=== PATIENT | female | born 1965 | race Caucasian/White ===

== ENCOUNTER → 2020-12-27 09:40 | Outpatient (CLI) | payer OTHER, SELFPAY ==
--- NOTE | ~2020-12-27 | XR_ITS ---
EXAMINATION: XR knee RT 3V DATE: 12/27/2020 10:22 INDICATION: Right knee injury and pain. TECHNIQUE: 3 views of right knee standing were obtained. COMPARISON: None. FINDINGS: Bone alignment is normal. No fracture. There is mild tricompartmental osteoarthritis charac terized by tiny marginal osteophytes. There is a small knee joint effusion. IMPRESSION: 1. Mild right knee osteoarthritis. 2. Small right knee joint effusion. Reviewed, dictated and finalized at location B.
== END ==
PROVIDERS: PCP Internal Medicine; Visit Provider Internal Medicine
DX: M17.11 Unilateral primary osteoarthritis, right knee (principal); M25.461 Effusion, right knee
CPT/HCPCS: 73562

== ENCOUNTER → 2020-12-27 18:14 | Outpatient (CLI) | payer OTHER, SELFPAY ==
--- NOTE | ~2020-12-27 | MM_ITS ---
EXAMINATION: MM screening rory BI w shanthi HISTORY: Screening mammogram TECHNIQUE: Craniocaudal and mediolateral oblique 3-D tomosynthesis images were obtained and synthetic 2-D images were generated. CAD analysis was submitted and interpreted. COMPARISON: 06/23/2018 bilateral digital screening mammogram BREAST PARENCHYMAL COMPOSITION: There are scattered areas of fibroglandular density. FINDINGS: There is no evidence of suspicious mass, calcification, or architectural distortion to sugg est malignancy in either breast. There has been no suspicious interval change. IMPRESSION: 1. No mammographic evidence of malignancy. 2. Recommend routine screening mammography in one year. BI-RADS Category 1: Negative Reviewed, dictated and finalized at location A.
== END ==
PROVIDERS: PCP Internal Medicine; Visit Provider Obstetrics & Gynecology Gynecology
DX: Z12.31 Encounter for screening mammogram for malignant neoplasm of breast (principal)
CPT/HCPCS: 77063; 77067

== ENCOUNTER 2022-05-15 07:40 | Outpatient (CLI) | payer OTHER, SELFPAY ==
--- NOTE | 2022-06-04 12:09 | WPDSLEEPSTUD ---
Sleep Study Date of Study: 05/15/22 Ordering Provider: Jesse Partida APRN Interpreting Physician: Isabella Moncada MD Sleep Study Type: Split Polysomnogram Height: 1.68 m Weight: 99.79 kg Body Mass Index: 35.5 Neck Circumference (inches): 17.5 Helen: 19 Reason for Sleep Study Obstructive sleep apnea, hypersomnolence Sleep History Kavitha Roper is a 57-year-old female who started using CPAP 20 years ago. A new device is needed. The patient snores loudly and is tired during the day. There is a family history with 2 siblings also having sleep apnea. There frequent awakenings due to shortness of breath. Frequently awakening at night with heartburn, belching or coughing. There is constant difficulty sleeping when she has a cold. She occasionally wakes up gasping for breath at night. She frequently has breathing problems at night observed by others. She occasionally sweats excessively at night. She frequently has breathing problems at night observed by others. She occasionally sweats excessively at night, occasionally notices her heart pounding or beating irregularly at night, occasionally falls asleep during the day and if he occasionally falls asleep involuntarily. She rarely falls asleep while driving. She does not have loss of muscle tone with strong emotion. She frequently has daytime difficulties due to excessive sleepiness. She occasionally feels paralyzed on waking or falling asleep. She frequently has vivid dreamlike scenes upon awakening or falling asleep. She does not feel afraid to go to sleep. She occasionally has nightmares. She frequently remembers her dreams. She occasionally has racing thoughts. She rarely feels sad or depressed. She occasionally has anxiety. She occasionally has muscular tension, occasionally notices parts of her body jerking and she occasionally kicks at night. She frequently has crawling aching feelings in her legs. She frequently has leg pain at night. She does not have morning jaw pain. Rarely grinds her teeth during sleep. She occasionally is bothered by pain during the day and occasionally awakened by pain at night. She frequently wakes up feeling stiff in the morning with sore achy muscles and pain in the neck and spine. She has fatigue and memory problems at times she has insomnia. She takes antacids regularly. Normal bedtime is 10:30 p.m. falling asleep within 10 minutes, typically waking 3-5 times at night to go to the bathroom, we position. It takes her 5 minutes to return to sleep. She wakes between 630 and 7:00 a.m.. She estimates getting 5-1/2 hours of sleep at night. On the weekends, bedtime is later, midnight and a wake-up time is between 7 and 7:30 a.m.. She occasionally takes naps in the day. A short nap may be refreshing. She is usually drowsy for an hour or longer. Habits: Never smoked tobacco. Caffeine 1 ice tea a day. Alcohol twice a month. No recreational drugs. [facility] Past Medical History Medical History (Updated 06/06/22 @ 17:47 by Isabella Moncada MD) Dyslipidemia Essential hypertension GERD (gastroesophageal reflux disease) AMANDO (obstructive sleep apnea) Family History Family History Sibling Diabetes mellitus Hypertension Mother Hypertension Family history of elevated blood lipids Social History Social History Smoking status: Never smoker Alcohol intake: current Medications Home Medications Medication Instructions Recorded Confirmed Type esomeprazole magnesium 20 mg 20 mg PO DAILY 02/07/22 05/15/22 History capsule,delayed release lisinopril 40 mg tablet 40 mg PO DAILY #90 tabs 02/07/22 05/15/22 Rx alprazolam 0.25 mg tablet (Xanax) 0.25 mg PO DAILY PRN anxiety #30 05/15/22 05/15/22 Rx tabs Sleep Procedure This test was performed using the [employer] multiple channel system including EOG, EEG, submen
[2022-06-06 20:27] VITALS: BMI 35.5
== END 2022-05-16 05:20 | disposition home or self-care (01) ==
PROVIDERS: PCP Internal Medicine; Visit Provider Nurse Practitioner Family
DX: G47.33 Obstructive sleep apnea (adult) (pediatric) (principal); G47.31 Primary central sleep apnea; G47.10 Hypersomnia, unspecified; Z68.35 Body mass index [BMI] 35.0-35.9, adult
CPT/HCPCS: 95811

== ENCOUNTER 2023-02-19 16:21 | Outpatient (CLI) | payer OTHER, SELFPAY ==
--- NOTE | ~2023-02-19 | XR_ITS ---
Lumbosacral Spine: AP and lateral views Clinical History: Pain Findings: The normal lordotic curve is maintained. There is posterior fusion from L4 through S1, bila teral rods and transpedicular screws present. There are interbody fusion devices at the L4-L5 and L5- S1 disc spaces. Remaining disc spaces are preserved. The sacroiliac joints are normally outlined. Impression: Posterior fusion and interbody fusion from L4 through S1, as detailed above. Reviewed, dictated and finalized at location M. Impression: Posterior fusion and interbody fusion from L4 through S1, as detailed above.
--- NOTE | ~2023-02-19 | XR_ITS ---
EXAM: XR hip RT 2V w AP pelvis DATE: 02/19/2023 16:49 HISTORY: M25.559 - Pain in unspecified hip . COMPARISON: None available. FINDINGS: Partially visualized lumbar fusion hardware. Normal mineralization. No fracture or dislocat ion. No lytic or blastic lesion. Mild degenerative change in the lumbar spine, pubic symphysis, and b ilateral hips. Scattered pelvic and hip enthesopathy. No erosion or periosteal change. Soft tissues w ithin normal limits. IMPRESSION: Mild bilateral hip osteoarthritis, slightly worse in the right hip. Reviewed, dictated and finalized at location K.
--- NOTE | ~2023-02-19 | XR_ITS ---
EXAMINATION: XR_CERV2-3V_CR DATE: 02/19/2023 16:54 INDICATION: Back pain. TECHNIQUE: 3 views of cervical spine were obtained. COMPARISON: None. FINDINGS: Bone alignment is normal. Vertebral body heights are normal. There is mildly decreased disc height at C4-C5. There is multilevel uncovertebral joint osteoarthritis, severe on the left at C5-C6 . There is multilevel facet joint osteoarthritis, severe at C7-T1. No central canal stenosis or preve rtebral soft tissue swelling. IMPRESSION: 1. Mild cervical spondylosis. Reviewed, dictated and finalized at location A.
== END 2023-02-19 16:22 | disposition home or self-care (01) ==
LOC: ANHIMG 16:25
PROVIDERS: PCP Family Medicine; Visit Provider Family Medicine
DX: M16.0 Bilateral primary osteoarthritis of hip (principal); M47.812 Spondylosis without myelopathy or radiculopathy, cervical region; M54.50 Low back pain, unspecified; I10 Essential (primary) hypertension; Z98.1 Arthrodesis status
CPT/HCPCS: 72040; 72100; 73502

== ENCOUNTER 2023-04-18 15:00 | Outpatient (RCR) | payer OTHER, SELFPAY ==
--- NOTE | 2023-02-28 14:58 | OPREHPOC ---
Outpatient Therapy Plan of Care This is a Multidisciplinary Plan of Care that may contain components documented by all disciplines (PT, OT, and ST.) PT Problem 1 PT Problem #1 Knowledge Deficit PT Goal 1 Goal Independent with HEP Target Visit 8 PT Problem 2 PT Problem #2 Impaired Strength PT Goal 1 Goal R hip flexors, knee extensors and flexors 5/5 strength. Target Visit 8 PT Problem 3 PT Problem #3 Pain PT Goal 1 Goal decreased R hip/thigh pain to no more than 2/10 Target Visit 8 PT Goal 2 Goal able to sleeep through the night Target Visit 8
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
== END 2023-05-10 16:10 | disposition home or self-care (01) ==
LOC: ANHPT 15:00
PROVIDERS: PCP Family Medicine; Visit Provider Family Medicine
DX: S76.20 Unspecified injury of adductor muscle, fascia and tendon of thigh (principal)
CPT/HCPCS: 97110; 97140; 97161; 99199

== ENCOUNTER → 2023-05-15 10:38 | Outpatient (CLI) | payer OTHER, SELFPAY ==
--- NOTE | ~2023-05-15 | MM_ITS ---
EXAMINATION: MM screening rory BI w shanthi HISTORY: Screening mammogram TECHNIQUE: Craniocaudal and mediolateral oblique 3-D tomosynthesis images were obtained and synthetic 2-D images were generated. CAD analysis was submitted and interpreted. COMPARISON: 12/27/2020, 06/23/2018 bilateral screening mammogram examinations BREAST PARENCHYMAL COMPOSITION: There are scattered areas of fibroglandular density. FINDINGS: There is no evidence of suspicious mass, calcification, or architectural distortion to sugg est malignancy in either breast. There has been no suspicious interval change. IMPRESSION: 1. No mammographic evidence of malignancy. 2. Recommend routine screening mammography in one year. BI-RADS Category 1: Negative Reviewed, dictated and finalized at location A.
== END ==
PROVIDERS: PCP Family Medicine; Visit Provider Obstetrics & Gynecology Gynecology
DX: Z12.31 Encounter for screening mammogram for malignant neoplasm of breast (principal)
CPT/HCPCS: 77063; 77067

== ENCOUNTER 2023-05-31 11:01 | Outpatient (CLI) | payer OTHER, SELFPAY ==
--- NOTE | ~2023-05-31 | MR_ITS ---
EXAMINATION: MR brain/brain stem wo con DATE: 05/31/2023 11:34 INDICATION: Posttraumatic headache TECHNIQUE: Magnetic resonance imaging (MRI) of the brain and brainstem was performed without intraven ous contrast. Sequences included sagittal and axial T1-weighted SE, axial diffusion-weighted FS SE, a xial 3D SWAN, axial T2-weighted FLAIR, and axial T2-weighted FSE. Apparent diffusion coefficient (ADC ) maps were created. COMPARISON: None. FINDINGS: There are no areas of restricted diffusion to suggest acute infarction. No intracranial hemorrhage or abnormal intracranial mass lesion. There are no intraparenchymal signal abnormalities seen on the ot her pulse sequences. The ventricles are symmetric and normal in size. There are no abnormal extra-axi al fluid collections. Flow voids are seen in the cerebral arteries on the T2-weighted sequences consi stent with their expected patency. Visualized orbits and soft tissues are unremarkable. IMPRESSION: 1. Normal brain MR. Reviewed, dictated and finalized at location A. IMPRESSION: 1. Normal brain MR.
== END 2023-05-31 11:02 | disposition home or self-care (01) ==
LOC: ANHIMG 11:03
PROVIDERS: PCP Family Medicine; Visit Provider Family Medicine
DX: G44.309 Post-traumatic headache, unspecified, not intractable (principal); S09.90XS Unspecified injury of head, sequela; R47.89 Other speech disturbances
CPT/HCPCS: 70551

== ENCOUNTER 2023-07-10 08:15 | Outpatient (RCR) | payer OTHER, SELFPAY ==
[2023-06-12 08:20] VITALS: BMI 35.8
[2023-06-12 08:23] VITALS: BMI 35.8
[2023-07-10 08:29] VITALS: BMI 35.5
[2023-07-10 08:30] VITALS: BMI 35.5
== END 2023-09-09 08:41 | disposition home or self-care (01) ==
LOC: ANHDMC 08:15
PROVIDERS: PCP Family Medicine; Visit Provider Family Medicine
DX: I10 Essential (primary) hypertension (principal); E66.9 Obesity, unspecified; G47.33 Obstructive sleep apnea (adult) (pediatric); K21.9 Gastro-esophageal reflux disease without esophagitis; Z71.3 Dietary counseling and surveillance
CPT/HCPCS: 97802; 97803

== ENCOUNTER 2023-10-10 08:15 | Outpatient (RCR) | payer OTHER, SELFPAY ==
[2023-09-19 08:22] VITALS: BMI 35.9
[2023-10-10 08:20] VITALS: BMI 35.9
== END 2023-12-18 23:59 | disposition home or self-care (01) ==
LOC: ANHDMC 08:15
PROVIDERS: PCP Family Medicine; Visit Provider Family Medicine
DX: E66.9 Obesity, unspecified (principal); I10 Essential (primary) hypertension; K21.9 Gastro-esophageal reflux disease without esophagitis; G47.33 Obstructive sleep apnea (adult) (pediatric); Z68.36 Body mass index [BMI] 36.0-36.9, adult; Z71.3 Dietary counseling and surveillance
CPT/HCPCS: 97803

== ENCOUNTER 2024-03-24 14:20 | Outpatient (CLI) | payer OTHER, SELFPAY ==
--- NOTE | ~2024-03-24 | XR_ITS ---
XR chest 2V Ordering provider: Devan Bell MD History: 58 years Female with . E66.9 - Obesity, unspecified . Comparison: None. FINDINGS: MEDIASTINUM: The cardiac silhouette is not enlarged. LUNGS: No infiltrates, effusions or pneumothorax. OTHER: No free air under the diaphragm. Degenerative changes of the spine. IMPRESSION: No acute cardiopulmonary pathology. Reviewed, dictated and finalized at location A.
--- NOTE | 2024-03-24 14:39 | ECG_ITS ---
Test Date: 2024-03-24 14:49:18 Measurements Intervals [place] Rate: 62 P: 30 MN: 177 QRS: 64 QRSD: 98 T: 35 QT: 409 QTc: 416 Interpretive Statements SINUS RHYTHM No previous ECG available for comparison Electronically Signed On 03-24-2024 15:21:47 CDT by Jessica Holguin M.D.
== END 2024-03-24 14:21 | disposition home or self-care (01) ==
PROVIDERS: PCP Family Medicine; Visit Provider Family Medicine
DX: E66.9 Obesity, unspecified (principal); I10 Essential (primary) hypertension; E78.5 Hyperlipidemia, unspecified; G47.33 Obstructive sleep apnea (adult) (pediatric); K21.9 Gastro-esophageal reflux disease without esophagitis; E55.9 Vitamin D deficiency, unspecified
CPT/HCPCS: 71046; 93005

== ENCOUNTER 2024-05-04 15:35 | Outpatient (CLI) | payer OTHER, SELFPAY ==
--- NOTE | ~2024-05-04 | US_ITS ---
EXAMINATION: US pelvic limited DATE: 05/04/2024 15:54 INDICATION: Right inguinal pain TECHNIQUE: Multiple grayscale and Doppler ultrasound images of the abdomen were obtained. COMPARISON: None FINDINGS/IMPRESSION: No right inguinal hernia, pathologically enlarged lymph nodes or other abnormal masses or fluid colle ctions identified at the right inguinal region of concern. Reviewed, dictated and finalized at location A.
== END 2024-05-04 15:36 | disposition home or self-care (01) ==
PROVIDERS: PCP Family Medicine; Visit Provider Family Medicine
DX: R10.30 Lower abdominal pain, unspecified (principal); M25.559 Pain in unspecified hip
CPT/HCPCS: 76857

== ENCOUNTER 2024-05-19 13:39 | Outpatient (CLI) | payer OTHER, SELFPAY ==
--- NOTE | ~2024-05-19 | MM_ITS ---
EXAMINATION: MM screening rory BI w shanthi HISTORY: Screening TECHNIQUE: Craniocaudal and mediolateral oblique 3-D tomosynthesis images were obtained and synthetic 2-D images were generated. CAD analysis was submitted and interpreted. COMPARISON: Comparison to multiple prior studies sequentially, with oldest reviewed study dated 06/05. BREAST PARENCHYMAL COMPOSITION: Not dense: There are scattered areas of fibroglandular density. FINDINGS: There is no evidence of suspicious mass, calcification, or architectural distortion to sugg est malignancy in either breast. There has been no suspicious interval change. IMPRESSION: 1. No mammographic evidence of malignancy. 2. Recommend routine screening mammography in one year. BI-RADS Category 1: Negative Reviewed, dictated and finalized at location B.
== END 2024-05-19 13:40 | disposition home or self-care (01) ==
LOC: MICIMG 13:39
PROVIDERS: PCP Family Medicine; Visit Provider Nurse Practitioner
DX: Z12.31 Encounter for screening mammogram for malignant neoplasm of breast (principal)
CPT/HCPCS: 77063; 77067

== ENCOUNTER 2024-06-06 13:44 | Emergency (ER) | payer OTHER, SELFPAY ==
[2024-06-06] VITALS (15 sets, daily range): BP systolic 146–154; BP diastolic 78–94; PULSE 92–100; RESP 16–21; TEMP 36.5; O2SAT 94–97
--- NOTE | ~2024-06-06 | XR_ITS ---
XR chest 2V DATE: 06/06/2024 14:14 INDICATION: Chest pain, dyspnea on exertion. Neck surgery on 06/04/2024 TECHNIQUE: AP and lateral views COMPARISON: 03/24/2024 PA and lateral chest FINDINGS: Status post intervertebral body fusion at C5-6 and C6-7 since 03/24/2024. Normal heart size. No hilar or mediastinal enlargement. Minimal linear atelectasis at the left lung base; otherwise no pulmonary infiltrate or consolidation, pleural effusion or pulmonary vascular congestion or pneumothorax. Status post cholecystectomy. IMPRESSION: Minimal linear atelectasis at left lung base Postoperative change of the lower cervical spine since 03/24/2024 Reviewed, dictated and finalized at location A.
--- NOTE | 2024-06-06 13:45 | ECG_ITS ---
Test Date: 2024-06-06 13:50:12 Measurements Intervals [place] Rate: 101 P: 59 ID: [id number] QRS: 48 QRSD: 97 T: 39 QT: 326 QTc: 424 Interpretive Statements SINUS TACHYCARDIA MINIMAL Q WAVES- ANTEROLAT/INF LEADS BASELINE WANDER- I, II BORDERLINE ECG Compared to ECG 03/24/2024 14:49:18 HEART RATE HAS INCREASED Electronically Signed On 06-06-2024 17:11:10 CDT by Maxi Sapp D.O.
[2024-06-06 14:08] LABS: Basophils Percent Auto 0.3 % (0.2-1.2); Eosinophils Percent Auto 0.4 % (0-4.4); Hematocrit 34.7 % (37.0-47.0); Hemoglobin 11.8 g/dL (12.0-15.0); Immature Granulocyte Absolute 0.03 K/mm3 (0.00-0.031); Immature Granulocyte Percent A 0.3 % (0-0.5); Lymphocytes Absolute Auto 2.85 K/mm3 (0.9-3.2); Lymphocytes Percent Auto 31.1 % (18.3-44.2); Mean Corpuscular Hemoglobin 29.6 pg (26-34); Mean Corpuscular Volume 87.2 fl (80-100); Monocytes Absolute Auto 0.6 K/mm3 (0.1-0.6); Monocytes Percent Auto 6.3 % (2.6-8.5); Neutrophils Absolute Auto 5.6 K/mm3 (1.3-6.7); Neutrophils Percent Auto 61.6 % (45.5-73.1); Platelet Count Result 219 k/mm3 (150-375); Red Blood Count 3.98 M/mm3 (4.2-5.4); Red Cell Distribution Width 12.2 % (11.5-14.5); White Blood Count 9.2 K/mm3 (4.5-10.0)
--- NOTE | 2024-06-06 14:15 | ED_ITS ---
HPI - Chest Pain General Chief Complaint: Chest Pain Stated Complaint: chest pain Time Seen by Provider: 06/06/24 14:12 Source: patient Mode of arrival: ambulatory Limitations: no limitations History of Present Illness HPI narrative: PATIENT IS STATUS POST NECK SURGERY 3 DAYS AGO AT [place]. LAST NIGHT DEVELOPED SQUEEZING FEELING AT THE UPPER CHEST BILATERALLY, COUGHED UP BLACK SPUTUM ONCE. NOTICED THAT HER HEART RATE IS HIGH LITTLE BIT ABOVE 100, SHE DENIES ANY FEVER, CHILLS, NAUSEA, VOMITING,, DIFFICULTY SWALLOWING OR TALKING, REPORTS SHORTNESS OF BREATH ON EXERTION. HISTORY OF HYPERTENSION, DOES NOT SMOKE OR DRINK OR USE DRUGS. Related Data Home Medications Medication Instructions Recorded Confirmed esomeprazole magnesium 20 mg 20 mg PO DAILY 02/07/22 02/18/24 capsule,delayed release multivit,Ca,ain-nklx-GS-guarana-caff tablet PO 10/02/23 02/18/24 18 mg iron-400 mcg-180 mg tablet (One-A-Day Women's Active) omega 9-jwh-rsx-fish oil 60 mg-90 1 cap PO DAILY 10/02/23 02/18/24 mg-500 mg capsule (Fish Oil) Allergies Allergy/AdvReac Type Severity Reaction Status Date / Time No Known Allergies Allergy Verified 06/06/24 14:02 Review of Systems Review of Systems: All systems reviewed & are unremarkable except as noted in HPI and below PMFSH Past Medical History Medical History Dyslipidemia Essential hypertension GERD (gastroesophageal reflux disease) AMANDO (obstructive sleep apnea) Family History Family History Sibling Diabetes mellitus Hypertension Mother Hypertension Family history of elevated blood lipids Sibling Kidney problem Social History Social History Smoking status: Never smoker Alcohol intake: current Substance use: never Substance use type: does not use Living arrangements: with family Occupation/Education: occupation Gender identity (if verbalized by the patient): Female Spiritual care concerns: No Exam Narrative: GENERAL APPEARANCE: WELL-DEVELOPED, WELL-NOURISHED SKIN: NORMAL COLOR HEAD: NORMOCEPHALIC, NONTRAUMATIC EYES: CLEAR CONJUNCTIVA ENT: OROPHARYNX NORMAL, EARS NORMAL, NOSE NORMAL NECK: SUPPLE, NONTENDER CHEST AND RESPIRATORY: AIRWAY PATENT, NO RESPIRATORY DISTRESS, NO ACCESSORY MUSCLE USE HEART: REGULAR RATE/RHYTHM ABDOMEN: SOFT, NONTENDER, NO ORGANOMEGALY, QUIET BOWEL SOUNDS VASCULAR: NORMAL PERIPHERAL PULSES, NORMAL CAPILLARY REFILL. MUSCULOSKELETAL: NORMAL RANGE OF MOTION, NONTENDER BACK NEUROLOGIC: ALERT AND ORIENTED ?3, REMEDIATION PROJECT ENGINEER IS NORMAL TESTED, NO GROSS MOTOR DEFICIT Course Consultations Consultation #1: DR LORD, AGREED WITH OUR WORKUP, RECOMMEND DECADRON 10 MG IV AND PPI FOR POSSIBLE ESOPHAGEAL RELATED SYMPTOMS TO GO TO HIS OFFICE ON SATURDAY AND CALL HIS OFFICE FOR ANY NEW SYMPTOMS Date: 06/06/24 Time: 15:37 Vital Signs Vital signs: Vital Signs Temperature 36.5 C 06/06/24 13:51 Pulse Rate 99 06/06/24 13:51 Respiratory Rate 20 06/06/24 13:51 Blood Pressure 154/94 H 06/06/24 13:51 Pulse Oximetry 94 06/06/24 13:51 Oxygen Delivery Room Air 06/06/24 13:51 Temperature 36.5 C 06/06/24 13:51 Pulse Rate 97 06/06/24 15:19 Respiratory Rate 16 06/06/24 15:19 Blood Pressure 154/94 H 06/06/24 13:51 Pulse Oximetry 96 06/06/24 15:19 Oxygen Delivery Room Air 06/06/24 14:00 MDM - Chest Pain MDM Narrative Medical decision making narrative: PATIENT IS STATUS POST NECK SURGERY 3 DAYS AGO, YESTERDAY STARTED HAVING BILATERAL UPPER CHEST PAIN VITAL SIGNS ARE STABLE PHYSICAL EXAMINATION SHOWED A PATIENT LYING DOWN IN BED, LOOKS COMFORTABLE WITH SOFT C-COLLAR ON, HEART RATE IN THE 105 DIFFERENTIAL DIAGNOSIS MUSCULAR STRAIN SPRAIN, ESOPHAGITIS, EDEMA SECONDARY TO SURGERY BLOOD WORKUP TODAY SHOWED WBC OF 9.2, HEMOGLOBIN OF 11.8, CHEST X-RAY SHOWED NO ACUTE ABNORMALITIES EKG SHOWED SINUS TACHYCARDIA 101 BEATS PER MINUTE, ABNORMAL RHYTHM EKG, COMPARED TO EKG ON MARCH 2024 SINUS RHYTHM NO LONGER PRESENT PATIENT NEUROSURGEO DR. LORD AGREED WITH OUR WORKUP AND RECOMMEND 10 MG OF DECADRON IV AND PPI TO GO HOME WITH. Differential Diagnosis Differential diagnosis: Likely other ( ABOVE) Medical Records Data Attestation: I reviewed the patient's medical records. Lab Data Attestation: I reviewed the patient's lab results. 06/06/24 14:00 06/06/24 14:00 Labs: Lab Results 06/06/24 06/06/24 Range/Units 14:00 14:00 WBC 9.2 (4.5-10.0) K/mm3 RBC 3.98 L (4.2-5.4) M/mm3 Hgb 11.8 L (12.0-15.0) g/dL Hct 34.7 L (37.0-47.0) % MCV 87.2 (80-100) fl MCH 29.6 (26-34) pg MCHC 34.0 (32-36) g/dl RDW 12.2 (11.5-14.5) % Plt Count 219 (150-375) k/mm3 MPV 9.0 (7.4-10.4) fl Immature Gran % (Auto) 0.3 (0-0.5) % Neut % (Auto) 61.6 (45.5-73.1) % Lymph % (Auto) 31.1 (18.3-44.2) % [place] % (Auto) 6.3 (2.6-8.5) % Eos % (Auto) 0.4 (0-4.4) % Baso % (Auto) 0.3 (0.2-1.2) % Lymph # (Auto) 2.85 (0.9-3.2) K/mm3 [place] # (Auto) 0.6 (0.1-0.6) K/mm3 Eos # (Auto) 0.0 (0-0.3) K/mm3 Baso # (Auto) 0.0 (0.0-0.1) K/mm3 Abs Immat Gran (auto) 0.03 (0.00-0.031) K/mm3 Absolute Neuts (auto) 5.6 (1.3-6.7) K/mm3 Absolute Nucleated RBC 0.000 (0.0-0.012) K/mm3 Nucleated RBC % 0.0 (0.0-0.2) % PT 14.0 (11.1-14.7) Seconds INR 1.1 APTT 24.5 (22.3-36.8) Seconds D-Dimer 0.40 Cancelled (<0.48) ug/mL Sodium 138 (137-145) mmol/L Potassium 3.7 (3.4-5.0) mmol/L Chloride 101 (98-107) mmol/L Carbon Dioxide 27 (22-30) mmol/L Anion Gap 10 (4-12) mmol/L BUN 20 H (7-17) mg/dL Creatinine 0.80 (0.7-1.0) mg/dL Estim Creat Clear Calc 77 ml/min Estimated GFR > 60 (59 - ) Glucose 104 (65-110) mg/dL Calcium 8.8 (8.4-10.2) mg/dL Total Bilirubin 0.5 (0.2-1.3) mg/dL AST 25 (14-36) U/L ALT 26 (6-35) U/L Alkaline Phosphatase 70 (38-126) U/L Troponin I < 0.012 (0.000-0.034) ng/mL Total Protein 7.0 (6.3-8.2) g/dL Albumin 4.3 (3.5-5.1) g/dL Lipase 78 (23-300) U/L Imaging Data Radiologist's impression: Impressions Chest X-Ray 06/06/24 14:23 IMPRESSION: Minimal linear atelectasis at left lung base Postoperative change of the lower cervical spine since 03/24/2024 ECG Data EKG #1: Attestation: I personally reviewed and interpreted this ECG as follows: ECG completion date: 06/06/24 Interpretation: SINUS TACHYCARDIA AT 101 BEATS PER MINUTE ABNORMAL EKG, COMPARED TO EKG ON MARCH 2024 SINUS RHYTHM NOW NO LONGER PRESENT Critical Care Time Critical Care Time Critical Care Time: No Discharge Plan Discharge Clinical Impression: Post-op pain Patient Disposition: Home, Self-Care Condition: Stable Instructions: Pain Management (ED) Additional Instructions: RETURN IF SYMPTOMS ARE WORSENING , CALL YOUR NEUROSURGEON OFFICE FOR ANY NEW COMPLAIN BEFORE GOING TO THE HOSPITAL SEE YOURNEUROSURGEON AT HIS OFFICE ON SATURDAY , TAKE TYLENOL NEEDED FOR ACHES AND PAIN, CONTINUE HOME MEDICATIONS. Prescriptions: New pantoprazole [Protonix] 40 mg tablet,delayed release (DR/EC) 40 mg PO QAM Qty: 30 0RF No Action omega 2-yba-cfp-fish oil [Fish Oil] 60-90-500 mg capsule 1 cap PO DAILY One-A-Day Women's Active 18 mg iron- 400 mcg-180 mg tablet PO esomeprazole magnesium 20 mg capsule,delayed release(DR/EC) 20 mg PO DAILY sumatriptan succinate [Imitrex] 50 mg tablet See Rx Instructions PO .COMPLEX Qty: 30 1RF Rx Instructions: take 1 tab at onset of headache; if no relief may repeat 1 tab after at least 2 hrs; max = 4 tabs/24 hr PO alprazolam [Xanax] 0.25 mg tablet 0.25 mg PO DAILY PRN (Reason: anxiety) Qty: 30 0RF Zepbound 5 mg/0.5 mL pen injector 5 mg subcut WEEKLY Qty: 2 5RF lisinopril 40 mg tablet 40 mg PO DAILY Qty: 90 1RF Follow-up/Referrals: Devan Bell MD [Primary Care Provider] -
[2024-06-06 14:17] LABS: Alanine Aminotransferase 26 U/L (6-35); Albumin Level 4.3 g/dL (3.5-5.1); Alkaline Phosphatase 70 U/L (38-126); Anion Gap 10 mmol/L (4-12); Aspartate Amino Transferase 25 U/L (14-36); Bilirubin,Total 0.5 mg/dL (0.2-1.3); Blood Urea Nitrogen 20 mg/dL (7-17); Calcium 8.8 mg/dL (8.4-10.2); Carbon Dioxide 27 mmol/L (22-30); Chloride 101 mmol/L (98-107); Estimated CRCL calculation 77 ml/min; Estimated Glomerular Filt Rate > 60; Glucose 104 mg/dL (65-110); Lipase 78 U/L (23-300); Potassium 3.7 mmol/L (3.4-5.0); Sodium 138 mmol/L (137-145)
[2024-06-06 14:21] LABS: INR 1.1
[2024-06-06 14:22] LABS: Partial Thromboplastin Time 24.5 Seconds (22.3-36.8)
[2024-06-06 14:29] LABS: Troponin I < 0.012 ng/mL (0.000-0.034)
[2024-06-06] MEDS: dexAMETHasone SOD PHOS INJ 10 MG/ML 1 ML VIAL IV PUSH (16:12)
== END 2024-06-06 17:06 | disposition home or self-care (01) ==
PROVIDERS: Emergency Provider Emergency Medicine; PCP Family Medicine
DX: G89.18 Other acute postprocedural pain (principal); R07.9 Chest pain, unspecified; I10 Essential (primary) hypertension; E78.5 Hyperlipidemia, unspecified; K21.9 Gastro-esophageal reflux disease without esophagitis; G47.33 Obstructive sleep apnea (adult) (pediatric); R00.0 Tachycardia, unspecified
CPT/HCPCS: 36415; 71046; 80053; 83690; 84484; 85025; 85380; 85610; 85730; 93005; 96374; 99284; J1100

== ENCOUNTER 2024-09-24 00:15 | Day surgery (SDC) | payer OTHER, SELFPAY ==
[2024-09-22 13:23] VITALS: BMI 29.8
--- OUTSIDE RECORDS SUMMARY | 2024-09-24 00:17 | XMS_ITS | Referral Summary ---
Author Organization [facility] [employer] Address [address] [place] [address] Care Team Providers Care School Standards Coach Name Role Phone Xavier Layton MD Primary Care Provider [phone] Source Comments [facility] [employer],non-owned Affiliates and Associated Physician Practices is amultiple site organization consisting of ambulatory clinics and hospital sitesin [place], [place], [place] and [place]. This disclosure is being madepursuant to the Care Everywhere program and may not contain all information available regarding this patient. Last updated 18.[employer] Allergies No known active allergies Medications * Be aware that medications may not be up to date on this document. Alwaysverify current medications with the patient. Medication Sig Dispensed Refills Start Date End Date Status esomeprazole (NEXIUM) 20 MG capsule Take 20 mg by mouth daily before breakfast Active lisinopril (PRINIVIL; ZESTRIL) 20 MG tablet Take 20 mg by mouth once daily Active Active Problems Problem Noted Date Diagnosed Date Autoimmune hepatitis 10/17/2018 Obesity 10/07/2018 Elevated liver enzymes 09/10/2018 Overview (10/22/2018): 10/07/18 liver biopsy: chronic portal inflammation, stage 2 fibrosis, likely autoimmune hepatitis Hiatal hernia 09/10/2018 Hypertension GERD (gastroesophageal reflux disease) Overview (10/22/2018): 10/07/18 EGD: no GERD changes, possible Cuevas's, biopsies: no Cuevas's Social History Tobacco Use Types Packs/Day Years Used Date Smoking Tobacco: Never Smokeless Tobacco: Never Alcohol Use Standard Drinks/Week Comments Yes 0 (1 standard drink = 0.6 oz pure alcohol) HEAVIY IN 20'S, NOW COUPLE DRINKS/MONTH Sex and Gender Information Value Date Recorded Sex Assigned at Not on file Gender Identity Not on file Sexual Orientation Not on file Last Filed Vital Signs Vital Sign Reading Time Taken Comments Blood Pressure 122/70 09/04/2019 8:51 AM BEAMER OPERATOR Pulse 72 09/04/2019 8:51 AM BEAMER OPERATOR Temperature 36.4 C (97.6 F) 09/04/2019 8:51 AM BEAMER OPERATOR Respiratory Rate 18 09/04/2019 8:51 AM BEAMER OPERATOR Oxygen Saturation 98% 09/04/2019 8:51 AM BEAMER OPERATOR Inhaled Oxygen Concentration - - Weight 99.5 kg (219 lb 6.4 oz) 09/04/2019 8:51 A M BEAMER OPERATOR Height 167.6 cm (5' 6 ) 09/04/2019 8:51 AM BEAMER OPERATOR Body Mass Index 35.41 09/04/2019 8:51 AM BEAMER OPERATOR Functional Status Functional Status Response Date of Assess ment Is person deaf or have serious hearing difficult y? No 10/07/2018 Is person blind or have serious difficulty seein g? No 10/07/2018 Does person have serious dif ficulty walking/climbing stairs? No 10/07/2018 Does person have difficulty dressing/bathing? No 10/07/2018 Does person have difficulty doing errands alone? No 10/07/2018 Cognitive Status Response Date of Assessm ent Does person have difficulty concentrating/remembering/making decisions? No 10/07/2018 Plan of Treatment Not on file Procedures Procedure Name Priority Date/Time Associated Diagnosis Comments COMPREHENSIVE METABOLIC PANEL Routine 09/02/2019 8:02 AM BEAMER OPERATOR Elevated liver enzymes Autoimmune hepatitis (HCC) HEPATITIS C RNA QUANTITATIVE Routine 08/19/2018 2:40 PM BEAMER OPERATOR Elevated liver enzymes from Last 3 Months or Most Recently Relevant to Health Maintenance Results * (ABNORMAL) COMPREHENSIVE METABOLIC PANEL (09/02/2019 8:02 AM BEAMER OPERATOR) Glucose 110(H) 65 - 99 mg/dL [facility] Comment: Fasting reference interval For someone without known diabetes, a glucose value between 100 and 125 mg/dL is consistent with prediabetes and should be confirmed with a follow-up test. BUN 13 7 - 25 mg/dL [facility] Creatinine 1.08(H) 0.50 - 1.05 mg/dL [facility] Comment: For patients >49 years of age, the reference limit for Creatinine is approximately 13% higher for people identified as -Angolan. eGFR by MDRD 59(L) > OR = 60 mL/min/1. 73m2 [facility] eGFR by MDRD 68 > OR = 60 mL/min/1. 73m2 [facility] BUN/Creatinine Ratio 12 6 - 22 (calc) [facility] Sodium 141 135 - 146 mmol/L [facility] Potassium 4.2 3.5 - 5.3 mmol/L [facility] Chloride 102 98 - 110 mmol/L [facility] CO2 25 20 - 32 mmol/L [facility] Calcium 9.9 8.6 - 10.4 mg/dL [facility] Protein Total 7.6 6.1 - 8.1 g/dL [facility] Albumin 4.9 3.6 - 5.1 g/dL [facility] Globulin Total 2.7 1.9 - 3.7 g/dL (calc) [facility] Albumin/Globulin Ratio 1.8 1.0 - 2.5 (calc) [facility] Bilirubin Total 1.0 0.2 - 1.2 mg/dL [facility] Alkaline Phosphatase 76 33 - 130 U/L [facility] AST 23 10 - 35 U/L [facility] ALT 18 6 - 29 U/L [facility] Comment: Test Performed at: [facility] [address] [address] MESFIN HUGGINS DO,MPH Blood BLOOD SPECIMEN / Unknown 09/02/2019 8:02 AM BEAMER OPERATOR 09/02/2019 8:03 AM BEAMER OPERATOR Bobby Lemus MD LAB - CHEMISTRY DONIS KAPOOR [facility] [address] [place] [address] * HEPATITIS C RNA QUANTITATIVE (08/19/2018 2:40 PM BEAMER OPERATOR) Hepatitis C Virus RNA, Quantitative Real Time PCR <15 NOT DETECTED NOT DETECTED IU/mL [facility] Hepatitis C Virus RNA, Quantitative Real Time PCR <1.18 NOT DETECTED NOT DETECTED Log IU/mL [facility] See Note [facility] Comment: This test was performed using Real-Time Polymerase Chain Reaction. Reportable Range: 15 IU/mL to 100,000,000 IU/mL (1.18 Log IU/mL to 8.00 Log IU/mL). The analytical performance characteristics of this assay have been determined by [employer]. The modifications have not been cleared or approved by the FDA. This assay has been validated pursuant to the CLIA regulations and is used for clinical purposes. For more information on this test, go to: http://education.InnerWork[employer]/faq/HZL87h4 (This link is being provided for informational/ educational purposes only.) REPORT COMMENT: FASTING:NO Test Performed at: [facility] [address] [place] [address] MESFIN HUGGINS DO,MPH Blood BLOOD SPECIMEN / Unknown 08/19/2018 2:40 PM BEAMER OPERATOR 08/19/2018 2:42 PM BEAMER OPERATOR Brandon Henderson MD LAB - CHEMISTRY ORDERABLES Performing Organization Address City/State/[facility] Co de Phone Number [facility] [address] [place] [address] from Last 3 Months or Most Recently Relevant to Health Maintenance Care Teams School Standards Coach Relationship Specialty Start Date End Date Xavier Layton MD [address] [place] [address] PCP - General Internal Medicine 08/18/18
--- OUTSIDE RECORDS SUMMARY | 2024-09-24 00:17 | XMS_ITS | Clinical Summary ---
Author Organization [facility] Address [address] [place] [address] Care Team Providers Care Pillow Agent Name Role Phone Xavier Layton MD Primary Care Provider [phone] Source Comments [facility],non-owned Affiliates and Associated Physician Practices is amultiple site organization consisting of ambulatory clinics and hospital sitesin [place], [place], [place] and [place]. This disclosure is being madepursuant to the Care Everywhere program and may not contain all information available regarding this patient. Last updated 18.[facility] Allergies No known active allergies Medications * [...] Comments Blood Pressure 122/70 09/04/2019 8:51 AM DIRECTOR BUSINESS INTEGRATION Pulse 72 09/04/2019 8:51 AM DIRECTOR BUSINESS INTEGRATION Temperature 36.4 C (97.6 F) 09/04/2019 8:51 AM DIRECTOR BUSINESS INTEGRATION Respiratory Rate 18 09/04/2019 8:51 AM DIRECTOR BUSINESS INTEGRATION Oxygen Saturation 98% 09/04/2019 8:51 AM DIRECTOR BUSINESS INTEGRATION Inhaled Oxygen Concentration - - Weight 99.5 kg (219 lb 6.4 oz) 09/04/2019 8:51 A M DIRECTOR BUSINESS INTEGRATION Height 167.6 cm (5' 6 ) 09/04/2019 8:51 AM DIRECTOR BUSINESS INTEGRATION Body Mass Index 35.41 09/04/2019 8:51 AM DIRECTOR BUSINESS INTEGRATION Plan of Treatment Health Maintenance Due Date Last Done Comments COLOGUARD (AGES 45-75) - COLON CA SCREENING 1967 COLON MONITORING 1967 COLONOSCOPY - COLON CA SCREENING 1967 CT COLONOGRAPHY - COLON CA SCREENING 1967 Colorectal Cancer Screening 1967 FIT - COLON CA SCREENING 1967 FLEX SIG - COLON CA SCREENING 1967 LIPID TESTING 1967 MAMMOGRAM 1967 PAP SMEAR 1967 HIV SCREENING 1982 DTAP/TDAP/TD VACCINES (1 - Tdap) 1986 HEPATITIS B VACCINE (1 of 3 - 19+ 3-dose series) 1986 PNEUMOCOCCAL VACCINE 50+ (1 of 1 - PCV) 2017 ZOSTER VACCINE (1 of 2) 2017 SCREENING FOR DIABETES 09/02/2022 0, 09/30/2018, 09/23/2018, Additional history exists COVID-19 VACCINE (1 - 2023- season) 2024 INFLUENZA VACCINE (#1) 2024 7, 08/21/2011, 04/19/2010 DEPRESSION SCREENING 08/05/2024 HEPATITIS C SCREENING Completed 08/19/2018 HIB VACCINE Aged Out No longer eligi ble based on patient's age to complete this topic HPV VACCINE Aged Out No longer eligi ble based on patient's age to complete this topic MENINGOCOCCAL (Group B) VACCINE Aged Out No longer eligible based on patient's age to complete this topic MENINGOCOCCAL VACCINE Aged Out No ewelina alissa eligible based on patient's age to complete this topic PNEUMOCOCCAL VACCINE Aged Out No long er eligible based on patient's age to complete this topic Procedures Procedure Name Priority Date/Time Associated Diagnosis Comments COMPREHENSIVE METABOLIC PANEL Routine 09/02/2019 8:02 AM DIRECTOR BUSINESS INTEGRATION Elevated liver enzymes Autoimmune hepatitis (HCC) HEPATITIS C RNA QUANTITATIVE Routine 08/19/2018 2:40 PM DIRECTOR BUSINESS INTEGRATION Elevated liver enzymes from Last 3 Months or Most Recently Relevant to Health Maintenance Results * (ABNORMAL) COMPREHENSIVE METABOLIC PANEL (09/02/2019 8:02 AM DIRECTOR BUSINESS INTEGRATION) Glucose 110(H) 65 - 99 mg/dL [facility] [...] approximately 13% higher for people identified as -Colombian. eGFR by MDRD 59(L) > OR = [...] 29 U/L [facility] Comment: Test Performed at: [facility] [address] [facility] [address] MESFIN HUGGINS DO,MPH Blood BLOOD SPECIMEN / Unknown 09/02/2019 8:02 AM DIRECTOR BUSINESS INTEGRATION 09/02/2019 8:03 AM DIRECTOR BUSINESS INTEGRATION Bobby Lemus MD LAB - CHEMISTRY ORDE RABLES Performing Organization Address [facility] Co de Phone Number [facility] [address] [place] [address] * HEPATITIS C RNA QUANTITATIVE (08/19/2018 2:40 PM DIRECTOR BUSINESS INTEGRATION) Pathologist [facility] Hepatitis C Virus RNA, Quantitative Real Time [...] of this assay have been determined by [employer]. The modifications have not been cleared or approved by the FDA. This assay has been validated pursuant to the CLIA regulations and is used for clinical purposes. For more information on this test, go to: http://education.FORA.tv.[employer]/faq/NID76k4 (This link is being provided for informational/ educational purposes only.) REPORT COMMENT: FASTING:NO Test Performed at: [facility] [id number] [facility] [address] MESFIN HUGGINS DO,MPH Blood BLOOD SPECIMEN / Unknown 08/19/2018 2:40 PM DIRECTOR BUSINESS INTEGRATION 08/19/2018 2:42 PM DIRECTOR BUSINESS INTEGRATION Brandon Henderson MD LAB - CHEMISTRY ORDERABLES Performing Organization Address [facility] Co de Phone Number [facility] [address] [place] [address] from Last 3 Months or Most Recently Relevant to Health Maintenance Care Teams Pillow Agent Relationship Specialty Start Date End Date Xavier Layton MD [address] [place] [address] PCP - General Internal Medicine 08/18/18
--- OUTSIDE RECORDS SUMMARY | 2024-09-24 00:17 | XMS_ITS | Clinical Summary ---
Author Organization [facility] Address [address] [place] [address] Care Team Providers Care Clipper Automatic Name Role Phone Unavailable Primary Care Provider Unavailabl e Social History Tobacco Use Types Packs/Day Years Used Date Smoking Tobacco: Never Assessed Comments Unknown Sex and Gender Information Value Date Recorded Sex Assigned at Not on file Legal Sex Female 7:58 PM CDT Gender Identity Not on file Sexual Orientation Not on file Last Filed Vital Signs Vital Sign Reading Time Taken Comments Blood Pressure 136/74 07/21/2014 1:07 PM PLANT GENERAL MANAGER Pulse 96 07/21/2014 1:07 PM PLANT GENERAL MANAGER Temperature - - Respiratory Rate - - Oxygen Saturation - - Inhaled Oxygen Concentration - - Weight 109.5 kg (241 lb 8 oz) 07/21/2014 1:07 PM PLANT GENERAL MANAGER Height 167.6 cm (5' 6 ) 07/21/2014 1:07 PM PLANT GENERAL MANAGER Body Mass Index 38.98 07/21/2014 1:07 PM PLANT GENERAL MANAGER Plan of Treatment Health Maintenance Due Date Last Done Comments Cervical Cancer Screening Pa p Smear (Age 30 to 64) Every 3 Years 1967 Colorectal Cancer Screening Colonoscopy (10 Years) 1967 Annual Physical 1970 Hepatitis C 1985 DTaP, Tdap and Td Vaccines ( 1 - Tdap) 1986 Hepatitis B Vaccines (1 of 3 - 19+ 3-dose series) 1986 Cervical Cancer Screening Pa p with HPV Testing (Age 30 to 64) Every 5 Years 1997 Cervical Cancer Screening with HPV 1997 Mammogram Screening 2007 Zoster Vaccines (1 of 2) 2017 COVID-19 Vaccine (2023-2 5 season) 2024 Influenza Adult (#1) 2024 Meningococcal B Vaccine Aged Out No l onger eligible based on patient's age to complete this topic Meningococcal Vaccine Aged Out No ewelina alissa eligible based on patient's age to complete this topic Pneumococcal Vaccine: Pediat rics (0 to 5 Years) and At-Risk Patients (6 to 64 Years) Aged Out No longer eligible b ased on patient's age to complete this topic RSV Immunizations Under 20 Months Aged Out No longer eligible based on patient's age to complete this topic
--- OUTSIDE RECORDS SUMMARY | 2024-09-24 00:17 | XMS_ITS | Patient Health Summary ---
Author Organization [facility] Address [address] [address] Care Team Providers Care Security Guards Dispatcher Name Role Phone Xavier Layton MD Primary Care Provider [phone] Note from [facility],non-owned Affiliates and Associated Physician Practices is amultiple site organization consisting of ambulatory clinics and hospital sitesin [place], [place], [place] and [place]. This disclosure is being madepursuant to the Care Everywhere program and may not contain all information available regarding this patient. Last updated 18.[facility] Allergies No known active allergies Medications * Be aware that medications may not be up to date on this document. Alwaysverify current medications with the patient. * esomeprazole (NEXIUM) 20 MG capsule Take 20 mg by mouth daily before breakfast * lisinopril (PRINIVIL; ZESTRIL) 20 MG tablet Take 20 mg by mouth once daily Active Problems Problem Noted Date Diagnosed Date Autoimmune hepatitis 10/17/2018 Obesity 10/07/2018 Elevated liver enzymes 09/10/2018 Hiatal hernia 09/10/2018 Hypertension GERD (gastroesophageal reflux disease) Social History Tobacco Use Types Packs/Day Years [...] Comments Blood Pressure 122/70 09/04/2019 8:51 AM WHARF BUILDER Pulse 72 09/04/2019 8:51 AM WHARF BUILDER Temperature 36.4 C (97.6 F) 09/04/2019 8:51 AM WHARF BUILDER Respiratory Rate 18 09/04/2019 8:51 AM WHARF BUILDER Oxygen Saturation 98% 09/04/2019 8:51 AM WHARF BUILDER Inhaled Oxygen Concentration - - Weight 99.5 kg (219 lb 6.4 oz) 09/04/2019 8:51 A M WHARF BUILDER Height 167.6 cm (5' 6 ) 09/04/2019 8:51 AM WHARF BUILDER Body Mass Index 35.41 09/04/2019 8:51 AM WHARF BUILDER Procedures * PT-INR(Performed 09/02/2019) Performed for Elevated liver enzymes, Autoimmune hepatitis (HCC) * MICROSOMAL ANTIBODY LIVER/KIDNEY(Performed 09/02/2019) Performed for Elevated liver enzymes, Autoimmune hepatitis (HCC) * [id number] BLOOD(Performed 09/02/2019) Performed for Elevated liver enzymes, Autoimmune hepatitis (HCC) * IMMUNOGLOBULINS IGG/IGM/IGA PANEL(Performed 09/02/2019) Performed for Elevated liver enzymes, Autoimmune hepatitis (HCC) * SMOOTH MUSCLE ANTIBODY(Performed 09/02/2019) Performed for Elevated liver enzymes, Autoimmune hepatitis (HCC) * FERRITIN(Performed 09/02/2019) Performed for Elevated liver enzymes, Autoimmune hepatitis (HCC) * IRON + TIBC PANEL(Performed 09/02/2019) Performed for Elevated liver enzymes, Autoimmune hepatitis (HCC) * COMPREHENSIVE METABOLIC PANEL(Performed 09/02/2019) Performed for Elevated liver enzymes, Autoimmune hepatitis (HCC) * CBC W/O DIFFERENTIAL(Performed 09/02/2019) Performed for Elevated liver enzymes, Autoimmune hepatitis (HCC) * RONNI BLOOD SCREEN W/REFLEX TITER(Performed 09/02/2019) Performed for Elevated liver enzymes, Autoimmune hepatitis (HCC) * NEEDLE BIOPSY, LIVER(Performed 10/07/2018) * PATHOLOGY TISSUE(Performed 10/07/2018) Performed for Elevated liver enzymes, Hiatal hernia * ESOPHAGOGASTRODUODENOSCOPY (EGD) DIAGNOSTIC(Performed 10/07/2018) Performed for Elevated liver enzymes, Hiatal hernia * BIOPSY LIVER (NEEDLE/PERCUTANEOUS)(Performed 10/07/2018) Performed for Elevated liver enzymes, Hiatal hernia * EGD(Performed 10/07/2018) * PT-INR [facility](Performed 10/07/2018) Performed for Elevated liver enzymes * CBC W AUTO DIFFERENTIAL(Performed 10/07/2018) Performed for Elevated liver enzymes * COMPREHENSIVE METABOLIC PANEL(Performed 09/30/2018) Performed for Elevated liver enzymes * COMPREHENSIVE METABOLIC PANEL(Performed 09/23/2018) Performed for Elevated liver enzymes * COMPREHENSIVE METABOLIC PANEL(Performed 09/16/2018) Performed for Elevated liver enzymes * COMPREHENSIVE METABOLIC PANEL(Performed 09/09/2018) Performed for Elevated liver enzymes * COMPREHENSIVE METABOLIC PANEL(Performed 08/28/2018) Performed for Elevated liver enzymes * IMMUNOGLOBULINS IGG/IGM/IGA PANEL(Performed 08/19/2018) Performed for Elevated liver enzymes * MITOCHONDRIAL ANTIBODY SCREEN(Performed 08/19/2018) Performed for Elevated liver enzymes * COMPREHENSIVE METABOLIC PANEL(Performed 08/19/2018) Performed for Elevated liver enzymes * HEPATITIS C RNA QUANTITATIVE(Performed 08/19/2018) Performed for Elevated liver enzymes * CERULOPLASMIN(Performed 08/19/2018) Performed for Elevated liver enzymes * RONNI BLOOD SCREEN W/REFLEX TITER(Performed 08/19/2018) Performed for Elevated liver enzymes Results * PT-INR (09/02/2019 8:06 AM WHARF BUILDER) [facility] INR 1.0 [facility] Comment: Reference Range 0.9-1.1 Moderate-intensity Warfarin Therapy 2.0-3.0 Higher-intensity Warfarin Therapy 3.0-4.0 PT 10.2 9.0 - 11.5 sec [facility] Comment: For more information on this test, go to: http://education.AskBot/faq/VKN689 Test Performed at: [facility] [address] BRITTNEY BRENNAN MD Blood BLOOD SPECIMEN / Unknown 09/02/2019 8:06 AM WHARF BUILDER 09/02/2019 8:06 AM WHARF BUILDER Bobby Lemus MD LAB - COAGULATION OR DERABLES [address] [address] * RONNI BLOOD SCREEN W/REFLEX TITER (09/02/2019 8:02 AM WHARF BUILDER) Only the most recent of2 resultswithin the time period is included. [facility] RONNI Screen NEGATIVE NEGATIVE [facility] Comment: RONNI IFA is a first line screen for detecting the presence of up to approximately 150 autoantibodies in various autoimmune diseases. A negative RONNI IFA result suggests an RONNI-associated autoimmune disease is not present at this time, but is not definitive. If there is high clinical suspicion for Sjogren's syndrome, testing for anti-SS-A/Ro antibody should be considered. Anti-Nan-1 antibody should be considered for clinically suspected inflammatory myopathies. AC-0: Negative International Consensus on RONNI Patterns (https://doi.org/10.1515/teyj-7628-2839) For additional information, please refer to http://education.[employer] [place]/faq/HWQ970 (This link is being provided for informational/ educational purposes only.) Test Performed at: [facility] [address] [place] [address] MESFIN HUGGINS DO,MPH Blood BLOOD SPECIMEN / Unknown 09/02/2019 8:02 AM WHARF BUILDER 09/02/2019 8:03 AM WHARF BUILDER Bobby Lemus MD LAB - CHEMISTRY [facility] Organization Address City/State/ZIP Co de Phone Number [facility] [address] [place] [address] * MICROSOMAL ANTIBODY LIVER/KIDNEY (09/02/2019 8:02 AM WHARF BUILDER) LKM-1 Antibody IgG <=20.0 <=20.0 U [facility] Comment: Reference Range: <=20.0 Negative 20.1-24.9 Equivocal >=25.0 Positive Anti-liver/kidney microsomal antibodies (Anti-LKM-1) were previously tested by indirect immunofluorescence (IF) using rodent liver/kidney substrate. Identification of a specific antibody target as cytochrome P450 IID6 has led to the current recombinant based VERÓNICA. Antibodies to this cytochrome are present in approximately 70% of patients with autoimmune hepatitis type 2. This antibody is also present in approximately 10% of patients with hepatitis C infection. Test Performed at: [facility]/[address] [address] ROSALES RASHID MD,PHD Blood BLOOD SPECIMEN / Unknown 09/02/2019 8:02 AM WHARF BUILDER 09/02/2019 8:03 AM WHARF BUILDER Bobby Lemus MD LAB - CHEMISTRY ORDJosefa KAPOOR Performing Organization Address [facility] Co de Phone Number [facility] [address] [place] [address] * [id number] BLOOD (09/02/2019 8:02 AM WHARF BUILDER) [facility] Pudak-5-Ocrnqfpq sin 130 83 - 199 mg/dL [facility] Comment: Test Performed at: [facility] [place] [id number] [place] [address] MESFIN HUGGINS DO,MPH Blood BLOOD SPECIMEN / Unknown 09/02/2019 8:02 AM WHARF BUILDER 09/02/2019 8:03 AM WHARF BUILDER Bobby Lemsu MD LAB - CHEMISTRY DONIS KAPOOR Performing Organization Address [facility] Co de Phone Number [facility] [address] [place] [address] * SMOOTH MUSCLE ANTIBODY (09/02/2019 8:02 AM WHARF BUILDER) [facility] Actin Antibody IgG <20 <20 U [facility] Comment: Reference Range: <20 U: Negative >or=20 U: Positive Antibodies recognizing actin are the main component of smooth muscle antibodies associated with auto- immune liver disease. Actin antibodies are found in approximately 75% of patients with autoimmune hepatitis (AIH) type 1, approximately 65% of patients with autoimmune cholangitis, approximately 30% of patients with primary biliary cirrhosis and approximately 2% of healthy controls. High values are closely correlated with AIH type 1. Test Performed at: [facility] [address] [place], [place] ROSALES RASHID MD,PHD Blood BLOOD SPECIMEN / Unknown 09/02/2019 8:02 AM WHARF BUILDER 09/02/2019 8:03 AM WHARF BUILDER Bobby Lemus MD LAB - SEROLOGY ORDER YANETH Performing Organization Address [facility] Co de Phone Number [facility] [address] [place] [address] * (ABNORMAL) CBC W/O DIFFERENTIAL (09/02/2019 8:02 AM WHARF BUILDER) White Blood Cell Count 5.9 3.8 - 10.8 Thousand/u L [facility] RBC 5.13(H) 3.80 - 5.10 Million/uL [facility] Hemoglobin 15.3 11.7 - 15.5 g/dL [facility] Hematocrit 45.5(H) 35.0 - 45.0 % [facility] MCV 88.7 80.0 - 100.0 fL [facility] MCH 29.8 27.0 - 33.0 pg [facility] MCHC 33.6 32.0 - 36.0 g/dL [facility] RDW 12.5 11.0 - 15.0 % [facility] Platelet Count 255 140 - 400 Thousand/u L [facility] MPV 9.5 7.5 - 12.5 fL [facility] Comment: Test Performed at: [facility] [address] [place] [address] MESFIN HUGGINS DO,MPH Blood BLOOD SPECIMEN / Unknown 09/02/2019 8:02 AM WHARF BUILDER 09/02/2019 8:03 AM WHARF BUILDER Bobby Lemus MD LAB - HEMATOLOGY ORD ERABLES [facility] [address] [place] [address] * (ABNORMAL) COMPREHENSIVE METABOLIC PANEL (09/02/2019 8:02 AM WHARF BUILDER) Only the most recent of7 resultswithin the time period is included. Pathologist [facility] Glucose 110(H) 65 - 99 mg/dL [facility] [...] approximately 13% higher for people identified as -Gibraltarian. eGFR by MDRD 59(L) > OR = [...] 29 U/L [facility] Comment: Test Performed at: [facility] [address] [place] [address] MESFIN HUGGINS DO,MPH Blood BLOOD SPECIMEN / Unknown 09/02/2019 8:02 AM WHARF BUILDER 09/02/2019 8:03 AM WHARF BUILDER Bobby Lemus MD LAB - CHEMISTRY DONIS KAPOOR Performing Organization Address [facility] de Phone Number [facility] [address] [place] [address] * IRON + TIBC PANEL (09/02/2019 8:02 AM WHARF BUILDER) Iron 93 45 - 160 mcg/dL [facility] TIBC 365 250 - 450 mcg/dL (calc) [facility] % Saturation 25 16 - 45 % (calc) [facility] Comment: Test Performed at: [facility] [address] MESFIN HUGGINS DO,MPH Blood BLOOD SPECIMEN / Unknown 09/02/2019 8:02 AM WHARF BUILDER 09/02/2019 8:03 AM WHARF BUILDER Bobby Lemus MD LAB - CHEMISTRY DONIS KAPOOR Performing Organization Address [facility] de Phone Number [facility] [id number] [place] [address] * IMMUNOGLOBULINS IGG/IGM/IGA PANEL (09/02/2019 8:02 AM WHARF BUILDER) Only the most recent of2 resultswithin the time period is included. IgA 139 47 - 310 mg/dL [facility] IgG 1105 600 - 1640 mg/dL [facility] IgM 159 50 - 300 mg/dL [facility] Comment: Test Performed at: [facility] [address] [employer] [facility] [address] MESFIN HUGGINS DO,MPH Blood BLOOD SPECIMEN / Unknown 09/02/2019 8:02 AM WHARF BUILDER 09/02/2019 8:03 AM WHARF BUILDER Bobby Lemus MD LAB - CHEMISTRY ORDJosefa KAPOOR Performing Organization Address [facility] de Phone Number [facility] [address] [place] [address] * FERRITIN (09/02/2019 8:02 AM WHARF BUILDER) Ferritin 130 16 - 232 ng/mL [facility] Comment: Test Performed at: [facility] [address] [employer] [facility] [address] MESFIN HUGGINS DO,MPH Blood BLOOD SPECIMEN / Unknown 09/02/2019 8:02 AM WHARF BUILDER 09/02/2019 8:03 AM WHARF BUILDER Bobby Lemus MD LAB - CHEMISTRY DONIS KAPOOR Performing Organization Address [facility] de Phone Number [facility] [address] [place] [address] * NEEDLE BIOPSY, LIVER (10/07/2018 12:32 PM WHARF BUILDER) Narrative [facility] - 10/07/2018 12:32 PM WHARF BUILDER Elvis Gambino MD 10/07/2018 12:32 PM PERCUTANEOUS LIVER BIOPSY PROCEDURE NOTE Patient Name: Kavitha Roper Date: 10/07/2018 Time: 12:31 PM Attending: Elvis Gambino MD Fellow: None Diagnosis/Indication: Elevated LFTs, possible AIH Location: Endoscopy Admission Status: Outpatient PERMIT The indications, risks, benefits and alternatives, as described below, were explained to the patient who agreed to proceed. Signed, informed consent was obtained. Possible risks of liver biopsy include: Bleeding- risk of hemodynamically significant bleed requiring blood transfusion or surgery is approximately 1:1,000 Perforation (gallbladder, lung, bowel, kidney, other) the risk of perforation is less than 1:1,000 Severe pain after biopsy, including referred shoulder pain; the risk of pain requiring analgesics is approximately 1:4. PROCEDURE DESCRIPTION The patient was placed in the supine position. The liver was palpated and percussed and an appropriate intercostal location was identified. [facility] abdominal ultrasound for localization was performed. Comments: The liver was noted to be in a good position. The area was then prepped and draped in the usual sterile manner. 5 ml 1% lidocaine was used as a local anesthetic. Intravenous anxiolytic Versed 0 mg IV Fentanyl 0 mcg IV Biopsy performed after an endoscopic procedure: Yes. Instrument 16 G BioPince set at 33 mm (27 mm core) Adequate tissue was obtained using 1 pass from the right lobe. Procedure tolerated Well. Additional Comments Post procedure pain medication Oxycodone/acetaminophen 5/325 x 1-2 tabs prn Fentanyl 50 mcg IV q 30 min prn Immediate procedure complications Tissue was sent for: Routine histology. Fixation time: 11:50 am. Follow-up appointment: As scheduled. I personally performed this procedure. I was present for all portions of this procedure. Elvis Gambino MD Elvis Hammond MD GI PROCEDU RE ORDERABLES [facility] * PATHOLOGY TISSUE (10/07/2018 11:49 AM WHARF BUILDER) Case Report Surgical Pathology Report Case: [id number] Authorizing Provider: Elvis Gambino MD Collected: 10/07/2018 11:49 AM Ordering Location: [facility] Received: 10/07/2018 02:00 PM Pathologist: Claudia Horne MD Specimens: A) - Gastric, gastric polyps B) - Esophageal Biopsy, esophageal bx C) - Liver, liver bx-elevated liver enzymes, send results to Dr. Gomez 10/10/2018 3:05 PM [facility] Final Diagnosis Stomach, polyps, biopsy (A): - Fundic gland polyp Esophagus, biopsy (B): - Squamocolumnar mucosa with chronic inflammation - No intestinal metaplasia Liver, needle biopsy (C): - Chronic hepatitis with mild-moderate activity, grade 2-3 - Portal and periportal fibrosis, stage 2 10/10/2018 3:05 PM [facility] Microscopic Description and Comment Microscopic examination substantiates the final diagnosis. The liver biopsy is remarkable for prominent portal-based inflammation that is predominantly lymphocytic, though with scattered eosinophils, neutrophils, histiocytes, and rare plasma cells. There is interface activity throughout and scattered acidophil bodies at the interface and in the lobules. Lobular activity is mild and not out of proportion to the portal inflammation. Focal steatosis is present, though less than 5% overall; there is no ballooning, Saima Denk bodies, or features of steatohepatitis. Inflammation in the portal tracts surrounds the bile ducts, though there does not appear to be bile duct-centered inflammatory process. There are no granulomas or florid duct lesions. The trichrome stain shows portal and periportal fibrosis. The reticulin shows areas condensation; some areas have an appearance suspicious for bridging, but these more likely represent inflammation and collapse. The PASD is negative for alpha-1 antitrypsin globules, but shows a marked increase in Kupffer cells across the lobule and portal macrophages. The iron stain is negative. The portal-based inflammation with interface activity is a pattern consistent with chronic hepatitis. Without clinical evidence for viral hepatitis, the concern would be for autoimmune hepatitis, despite the negative RONNI; other serologic testing could be considered. The portal inflammation is relatively brisk and the interface activity is widespread though mild, consistent with mild-moderate activity (grade 2-3 Sangeeta Kyree). There is portal fibrosis and periportal expansion (grade 2 Sangeeta Kyree), but no definitive bridging. 10/10/2018 3:05 PM [facility] Clinical History The patient is a 53-year-old woman with esophageal reflux symptoms that persist despite appropriate therapy and elevated liver enzymes. Operative procedure/findings: Liver biopsy. EGD-irregular Z line and small hiatal hernia with possible Cuevas's mucosa, biopsied; few gastric polyps, biopsied; normal duodenum. 10/10/2018 3:05 PM [facility] Gross Description The requisition and specimen label(s) are identified with the patient name, Kavitha Roper. Received in formalin, specimen A, gastric polyps are two soft pink-monreal tissue fragments measuring 0.3 x 0.2 x 0.1 cm and 0.2 x 0.1 x 0.1 cm. The specimen is submitted in toto in cassette A1. Received in formalin, specimen B, esophageal biopsy are multiple soft, pink-monreal tissue fragments ranging from 0.1 to 0.3 cm, with an aggregate measurement of 0.4 x 0.4 x 0.1 cm. The specimen is submitted in toto in cassette B1. Received in formalin, specimen C, liver biopsy - elevated liver enzymes, send results to Dr. Gomez is one soft, pink biopsy measuring 2.4 cm long by 0.1 cm diameter. The specimen is submitted in toto in cassette C1. AMH/cml 10/10/2018 3:05 PM [facility] Disclaimer The performance characteristics of all immunohistochemical and indirect immunofluorescence stains (if any) cited in this report were determined by the Histopathology Laboratory of [facility]. Some of these tests were developed by our own laboratory and have not been cleared or approved by the US Food and Drug Administration. The FDA does not require this test to go through premarket FDA review. These tests are used for clinical purposes. They should not be regarded as investigational or for research. This laboratory is certified under the Clinical Laboratory Improvement Amendments (CLIA) as qualified to perform high complexity clinical laboratory testing. This case has been personally reviewed and interpreted by the attending (teaching) pathologist. 10/10/2018 3:05 PM [facility] Embedded Images 10/10/2018 3:05 PM [facility] Biopsy, NOS GASTRIC CONTENTS SPECIMEN / Unknown 10/07/2018 11:49 AM WHARF BUILDER 10/07/2018 2:00 PM WHARF BUILDER Biopsy, NOS ESOPHAGEAL BIOPSY SPECIMEN / Unknown 10/07/2018 11:49 AM WHARF BUILDER 10/07/2018 2:00 PM WHARF BUILDER Biopsy, Needle ENTIRE LIVER / Unknown 10/07/2018 11:50 AM WHARF BUILDER 10/07/2018 2:00 PM WHARF BUILDER Elvis Hammond MD LAB - PATH OLOGY/CYTOLOGY ORDERABLES [facility] [address] [place] [address], [facility] [phone] * EGD (10/07/2018 11:24 AM WHARF BUILDER) Report Endoscopy POC Endoscopy Department Report _ Patient Name: Kavitha Roper Procedure Date: 10/07/2018 11:24 AM Date of : 1965 Classification: Outpatient Gender: Female _ Providers: Elvis Gambino MD Referring MD: Xavier Layton (Referring MD) Procedure: Upper GI endoscopy Indications: Esophageal reflux symptoms that persist despite appropriate therapy Medications: Monitored Anesthesia Care Description of Procedure: Pre-Anesthesia Assessment: - Prior to the procedure, a History and Physical was performed, and patient medications and allergies were reviewed. The patient's tolerance of previous anesthesia was also reviewed. The risks and benefits of the procedure and the sedation options and risks were discussed with the patient. All questions were answered, and informed consent was obtained. Prior Anticoagulants: The patient has taken no previous anticoagulant or antiplatelet agents. ASA Grade Assessment: II - A patient with mild systemic disease. After reviewing the risks and benefits, the patient was deemed in satisfactory condition to undergo the procedure. After obtaining informed consent, the endoscope was passed under direct vision. Throughout the procedure, the patient's blood pressure, pulse, and oxygen saturations were monitored continuously. The GIF-H190 was introduced through the mouth, and advanced to the second part of duodenum. The upper GI endoscopy was accomplished without difficulty. The patient tolerated the procedure well. Findings: The Z-line was irregular and was found 38 cm from the incisors. There were islands of gastric type mucosa above the z-line that did not have the typical appearance of Cuevas's. A small hiatal hernia was present. Biopsies were taken of the islands of gastric type mucosa with a cold forceps for histology. Verification of patient identification for the specimen was done by the nurse using the patient's name and date. Estimated blood loss was minimal. A few 2 to 8 mm pedunculated and sessile polyps with no bleeding and no stigmata of recent bleeding were found in the gastric body. These had the appearance of benign fundic gland polyps. Biopsies were taken with a cold forceps for histology. Verification of patient identification for the specimen was done by the nurse using the patient's name and date. Estimated blood loss was minimal. The exam of the stomach was otherwise normal. The examined duodenum was normal. Estimated Blood Loss: Estimated blood loss was minimal. Complications: No immediate complications. Impression: - Z-line irregular, 38 cm from the incisors. - Small hiatal hernia with possible Cuevas's mucosa. Biopsied. - A few gastric polyps. Biopsied. Likely fundic gland polyps in the setting of chronic PPI use. - Normal examined duodenum. Recommendation: - Patient has a contact number available for emergencies. The signs and symptoms of potential delayed complications were discussed with the patient. Return to normal activities tomorrow. Written discharge instructions were provided to the patient. - Resume previous diet. - Continue present medications. - Await pathology results. - Repeat upper endoscopy in 2 years for surveillance based on pathology results (if positive for Cuevas's). - Return to liver clinic as previously scheduled. Attending Participation: I personally performed the entire procedure. Procedure Code(s): --- Professional --- 25903, Esophagogastroduod enoscopy, flexible, transoral; with biopsy, single or multiple Diagnosis Code(s): --- Professional --- K22.8, Other specified diseases of esophagus K44.9, Diaphragmatic hernia without obstruction or gangrene K31.7, Polyp of stomach and duodenum K21.9, Gastro-esophageal reflux disease without esophagitis R12, Heartburn CPT copyright 2016 [employer]. All rights reserved. The codes documented in this report are preliminary and upon nuclear plant technical advisor review may be revised to meet current compliance requirements. Elvis Gambino MD 10/07/2018 12:28:14 PM This report has been signed electronically. Note Initiated On: 10/07/2018 11:24 AM Number of Addenda: 0 [facility] [address] [place] [address] [facility] 10/07/2018 11:2 4 AM WHARF BUILDER Elvis Hammond MD GI PROCEDU RE ORDERABLES Performing Organization Address City/[facility]/ZIP Co de Phone Number [facility] * PT-INR [facility] (10/07/2018 10:50 AM WHARF BUILDER) PT 13.0 12.1 - 14.8 Seconds 10/07/2018 11:11 AM [facility] INR 1.0 See Comment 10/07/2018 11:11 AM [facility] Comment: The suggested therapeutic range for standard coumadin (warfarin) therapy is an INR of 2.0-3.0. For high-risk patients (Mechanical Mitral Valve Prosthesis, etc.), the suggested prophylactic therapeutic range is an INR of 2.5-3.5. Blood BLOOD SPECIMEN / Unknown Venipuncture / Unknown 10/07/2018 10:50 AM WHARF BUILDER 10/07/2018 10:56 AM WHARF BUILDER Francisco J Hernandez MD LAB - COAGULATION OR DERABLES Performing Organization Address [facility]/ZIP Co de Phone Number [address] [phone] * CBC W AUTO DIFFERENTIAL (10/07/2018 10:50 AM [facility]) WBC 7.1 3.5 - 10.5 10 3/uL 10/07/2018 11:02 AM [facility] RBC 4.45 3.90 - 5.00 10 6/uL 10/07/2018 11:02 AM [facility] Hemoglobin 13.3 12.0 - 15.5 g/dL 10/07/2018 11:02 AM [facility] Hematocrit 38.0 35.0 - 45.0 % 10/07/2018 11:02 AM [facility] MCV 85.4 81.0 - 97.0 fL 10/07/2018 11:02 AM [facility] MCH 29.9 28.0 - 34.0 pg 10/07/2018 11:02 AM [facility] MCHC 35.0 32.0 - 36.0 g/dL 10/07/2018 11:02 AM [facility] Platelet Count 250 150 - 400 10 3/uL 10/07/2018 11:02 AM [facility] RDW-SD 41.4 36.0 - 50.0 fL 10/07/2018 11:02 AM [facility] RDW-CV 13.2 11.2 - 14.8 % 10/07/2018 11:02 AM [facility] MPV 9.5 9.3 - 12.8 fL 10/07/2018 11:02 AM [facility] nRBC Absolute 0.00 0 10 3/uL 10/07/2018 11:02 AM [facility] nRBC Auto 0.0 0 /100 WBC 10/07/2018 11:02 AM [facility] Neutrophils % 58.9 35.0 - 70.0 % 10/07/2018 11:02 AM [facility] Lymphocytes % 32.7 19.7 - 55.1 % 10/07/2018 11:02 AM [facility] Monocytes % 6.3 3.0 - 15.0 % 10/07/2018 11:02 AM [facility] Eosinophils % 1.1 0.0 - 6.0 % 10/07/2018 11:02 AM [facility] Basophil % 0.7 0.0 - 1.5 % 10/07/2018 11:02 AM [facility] Neutrophils Absolute 4.2 1.6 - 7.0 10 3/uL 10/07/2018 11:02 AM [facility] Lymphocyte Absolute 2.3 0.8 - 2.9 10 3/uL 10/07/2018 11:02 AM [facility] Monocytes Absolute 0.45 0.14 - 0.66 10 3/uL 10/07/2018 11:02 AM [facility] Eosinophils Absolute 0.08 0.00 - 0.45 10 3/uL 10/07/2018 11:02 AM [facility] Basophils Absolute 0.05 0.00 - 0.06 10 3/uL 10/07/2018 11:02 AM [facility] Immature Granulocytes % 0.3 0.0 - 1.0 % 10/07/2018 11:02 AM [facility] Blood BLOOD SPECIMEN / Unknown Venipuncture / Unknown 10/07/2018 10:50 AM WHARF BUILDER 10/07/2018 10:56 AM WHARF BUILDER Francisco J Hernandez MD LAB - HEMATOLOGY ORD ERABLES [facility] [address] [phone] * MITOCHONDRIAL ANTIBODY SCREEN (08/19/2018 2:45 PM WHARF BUILDER) [facility] Mitochondrial M2 Antibody <20.0 U [facility] Comment: Reference Range: NEGATIVE: < OR = 20.0 EQUIVOCAL: 20.1-24.9 POSITIVE: > OR = 25.0 Test Performed at: [facility] [address] [place] [address] SHAHIDA LEE MD,PHD,CONCHA Blood BLOOD SPECIMEN / Unknown 08/19/2018 2:45 PM WHARF BUILDER 08/19/2018 2:46 PM WHARF BUILDER Brandon Henderson MD LAB - CHEMISTRY ORDERABLES Performing Organization Address City/[facility]/ZIP Co de Phone Number [facility] [address] [place] [address] * HEPATITIS C RNA QUANTITATIVE (08/19/2018 2:40 PM WHARF BUILDER) [facility] Hepatitis C Virus RNA, Quantitative Real Time [...] of this assay have been determined by [employer]. The modifications have not been cleared or approved by the FDA. This assay has been validated pursuant to the CLIA regulations and is used for clinical purposes. For more information on this test, go to: http://education.[employer]/faq/GEE53b2 (This link is being provided for informational/ educational purposes only.) REPORT COMMENT: FASTING:NO Test Performed at: [facility] [address] [employer] [id number] MESFIN HUGGINS DO,MPH Blood BLOOD SPECIMEN / Unknown 08/19/2018 2:40 PM WHARF BUILDER 08/19/2018 2:42 PM WHARF BUILDER Brandon Henderson MD LAB - CHEMISTRY ORDERABLES Performing Organization Address [facility] Co de Phone Number [facility] [address] [place] [address] * CERULOPLASMIN (08/19/2018 2:40 PM WHARF BUILDER) Ceruloplasmin 43 18 - 53 mg/dL [facility] Comment: Test Performed at: [facility] [address] [facility] [place] [address] MESFIN HUGGINS DO,MPH Blood BLOOD SPECIMEN / Unknown 08/19/2018 2:40 PM WHARF BUILDER 08/19/2018 2:42 PM WHARF BUILDER Brandon Henderson MD LAB - CHEMISTRY ORDERABLES Performing Organization Address [facility] Co de Phone Number [facility] [address] [place] [address] Care Teams Security Guards Dispatcher Relationship Specialty Start Date End Date Xavier Layton MD [address] [place] [id number] PCP - General Internal Medicine 08/18/18
[2024-09-24 08:24] VITALS: BP 97/59; PULSE 81; RESP 19; TEMP 36.2; O2SAT 99
[2024-09-24] MEDS: LACTATED RINGERS 1,000 ML 150 ML IV CONT (08:31)
--- NOTE | 2024-09-24 08:34 | P.PNAN_ITS ---
Anes - Initial Pre Proc Eval Procedure: Operation Date: 09/24/24 09:30 Proposed Procedures p Esophagogastroduodenoscopy - Daen Harris MD Date/Time: 09/24/24 08:34 Surgeon: Dane Harris MD Pre Op Diagnosis: GERD Patient Data Age: 59 Gender: F Height: 1.68 m Weight: 85.7 kg Last Vital Signs Temp 97.1 F L 09/24/24 08:24 Pulse 81 09/24/24 08:24 Resp 19 09/24/24 08:24 BP 97/59 L 09/24/24 08:24 Pulse Ox 99 09/24/24 08:24 O2 Del Method Room Air 09/24/24 08:24 Allergies Allergy/AdvReac Type Severity Reaction Status Date / Time No Known Allergies Allergy Verified 09/24/24 08:21 Home Medications ?Medication ?Instructions ?Recorded ?Confirmed ?Type sumatriptan succinate 50 mg tablet See Rx Instructions PO .COMPLEX 05/15/23 09/22/24 Rx (Imitrex) #30 tabs multivit,Ca,gek-uric-GA-guarana-caff 1 tablet PO DAILY 10/02/23 09/24/24 History 18 mg iron-400 mcg-180 mg tablet (One-A-Day Women's Active) omega 2-brg-wxc-fish oil 60 mg-90 1 cap PO DAILY 10/02/23 09/24/24 History mg-500 mg capsule (Fish Oil) alprazolam 0.25 mg tablet (Xanax) 0.25 mg PO DAILY PRN anxiety #30 09/02/24 09/22/24 Rx tabs pantoprazole 40 mg tablet,delayed 40 mg PO QAM #90 tabs 09/14/24 09/24/24 Rx release (Protonix) tirzepatide (weight loss) 2.5 2.5 mg (0.5 mL) subcut WEEKLY #2 mL 09/14/24 09/24/24 Rx mg/0.5 mL subcutaneous pen injector (Zepbound) lisinopril 40 mg tablet 20 mg PO DAILY 09/22/24 09/24/24 History Patient hx anesthesia problems: other (Pt had prolonged emergence after GA in the past. ) Family hx anesthesia problems: none Results Review: All pre-operative results and documents have been reviewed as part of the pre- operative evaluation. [facility] Past Medical History Medical History AMANDO (obstructive sleep apnea) GERD (gastroesophageal reflux disease) Dyslipidemia Essential hypertension Family History Family History Sibling Diabetes mellitus Hypertension Mother Hypertension Family history of elevated blood lipids Sibling Kidney problem Social History Social History Smoking status: Never smoker Alcohol intake: current Substance use: never Substance use type: does not use Living arrangements: alone Occupation/Education: occupation Gender identity (if verbalized by the patient): Female Spiritual care concerns: No Anes - Eval Final PreProcedure Day of Procedure 09/24/24 08:34 Patient weight: obese Lungs: normal air movement Airway: Mallampati scale class II Neurological: alert and oriented Last oral intake: >/= 8 hours ASA classification: III Emergent: no Anesthetic plan: proceed Anesthesia type and monitoring: general GIVS and standard monitoring Results Review: All pre-operative results and documents have been reviewed as part of the pre- operative evaluation. HTN, AMANDO on CPAP, GLP 1 for 3 weeks. Informed Consent: The patient's anesthetic plan and its attendant risks and benefits were discussed with the patient/family/POA. Questions were solicited and answers provided to the satisfaction of the patient/family/POA.
--- NOTE | 2024-09-24 09:05 | PM.HPGS ---
History of Present Illness History of Present Illness Consent: Risks, benefits, and alternatives have been discussed and questions answered. Patient agrees to proceed with procedure. Chief complaint: GERD Narrative: Kavitha Roper is a 59 year old female with more symptomatic gerd recently, last egd 2018. She has been taking ppi for many years, switched from nexium to protonix Review of Systems Review of Systems: All systems reviewed & are unremarkable except as noted in HPI and below PMFSH Past Medical History Medical History AMANDO (obstructive sleep apnea) GERD (gastroesophageal reflux disease) Dyslipidemia Essential hypertension Family History Family History Sibling Diabetes mellitus Hypertension Mother Hypertension Family history of elevated blood lipids Sibling Kidney problem Social History Social History Smoking status: Never smoker Alcohol intake: current Substance use: never Substance use type: does not use Living arrangements: alone Occupation/Education: occupation Gender identity (if verbalized by the patient): Female Spiritual care concerns: No Meds Home Medications and Allergies Home Medications ?Medication ?Instructions ?Recorded ?Confirmed ?Type sumatriptan succinate 50 mg tablet See Rx Instructions PO .COMPLEX 05/15/23 09/22/24 Rx (Imitrex) #30 tabs multivit,Ca,vax-zwok-BR-guarana-caff 1 tablet PO DAILY 10/02/23 09/24/24 History 18 mg iron-400 mcg-180 mg tablet (One-A-Day Women's Active) omega 9-kco-isp-fish oil 60 mg-90 1 cap PO DAILY 10/02/23 09/24/24 History mg-500 mg capsule (Fish Oil) alprazolam 0.25 mg tablet (Xanax) 0.25 mg PO DAILY PRN anxiety #30 09/02/24 09/22/24 Rx tabs pantoprazole 40 mg tablet,delayed 40 mg PO QAM #90 tabs 09/14/24 09/24/24 Rx release (Protonix) tirzepatide (weight loss) 2.5 2.5 mg (0.5 mL) subcut WEEKLY #2 mL 09/14/24 09/24/24 Rx mg/0.5 mL subcutaneous pen injector (Zepbound) lisinopril 40 mg tablet 20 mg PO DAILY 09/22/24 09/24/24 History Allergies Allergy/AdvReac Type Severity Reaction Status Date / Time No Known Allergies Allergy Verified 09/24/24 08:21 Vital Signs Vital Signs - 24 hr 09/24/24 08:24 Temperature 97.1 F L Pulse Rate 81 Respiratory Rate 19 Blood Pressure 97/59 L Pulse Oximetry 99 Oxygen Delivery Room Air Exam Const: General: comfortable and no acute distress HENMT: Face/Nose/Sinus: Normal nares present Eyes: General: appearance normal, both eyes and all related structures Neck: Neck: no JVD Resp: Auscultation: clear to auscultation bilaterally Cardio: Rate: regular rate Rhythm: regular rhythm GI: Inspection: non-distended GI Palp: Yes Soft to palpation Skin: General skin exam: normal color Neuro: General: gait normal Speech: normal speech Extrem: General: normal to inspection Psych: Mental Status: mental status grossly normal Assessment and Plan Assessment and plan (1) GERD (gastroesophageal reflux disease): Code(s): K21.9 - Gastro-esophageal reflux disease without esophagitis Status: Acute Assessment and Plan: egd with bx
[2024-09-24 09:16] VITALS: BP 100/58; PULSE 75; RESP 19; O2SAT 99
[2024-09-24 09:26] VITALS: BP 98/58; PULSE 75; RESP 20; O2SAT 99
[2024-09-24 09:36] VITALS: BP 111/62; PULSE 76; RESP 20; O2SAT 99
== END 2024-09-24 09:46 | disposition home or self-care (01) ==
PROVIDERS: PCP Family Medicine; Referring Provider Family Medicine; Visit Provider Internal Medicine Gastroenterology
PROC: 0DJ08ZZ Inspection of Upper Intestinal Tract, Via Natural or Artificial Opening Endoscopic (ICD-10-PCS; CPT 43239; principal; 2024-09-24 09:30)
DX: K21.9 Gastro-esophageal reflux disease without esophagitis (principal); E66.9 Obesity, unspecified; Z68.30 Body mass index [BMI] 30.0-30.9, adult
CPT/HCPCS: 43239; 88305; J2003; J2704; J7120

== ENCOUNTER 2024-10-01 11:55 | Outpatient (CLI) | payer OTHER, SELFPAY | END 2024-10-01 11:56 | disposition home or self-care (01) | LOC: CHSIMG 11:57 | PROVIDERS: PCP Family Medicine; Visit Provider Family Medicine | DX: Z78.0 Asymptomatic menopausal state (principal) | CPT/HCPCS: 77080 ==

== ENCOUNTER 2025-07-28 09:00 | Outpatient (CLI) | payer OTHER, SELFPAY ==
--- NOTE | ~2025-07-28 | NM_ITS ---
EXAMINATION: NM elif stress w perfusion DATE: 07/28/2025 11:30 INDICATION: Abnormal electrocardiogram. TECHNIQUE: Rest images were obtained following intravenous administration of 10.2 mCi Tc99m tetrofosmin (Myoview). The patient was infused intravenously with Lexiscan (regadenoson). Then, 31 mCi Tc99m tetrofosmin (Myoview) was administered intravenously, and stress images were obtained. Data was recons tructed into short axis and horizontal and vertical long axis SPECT images. Gated SPECT images were also obtained. COMPARISON: None. FINDINGS: There is no definite reversible or fixed perfusion abnormality to suggest ischemia or infarction. There is no segmental wall motion abnormality. Left ventricular ejection fraction measures >70%. IMPRESSION: 1. No definite ischemia or infarct. 2. Normal left ventricular ejection fraction measuring >70%. Reviewed, dictated and finalized at location E. R SALES ADVISOR
--- OUTSIDE RECORDS SUMMARY | 2025-07-28 09:03 | XMS_ITS | Clinical Summary ---
Author Organization [facility] Address [address] [place] [id number] Care Team Providers Care Marine Consultant Name Role Phone Unavailable Primary Care Provider Unavailabl e Social History Tobacco Use Types Packs/Day Years Used Date Smoking Tobacco: Never Assessed Comments Unknown Sex and Gender Information Value Date Recorded Sex Assigned at Not on file Legal Sex Female 11:49 AM LEDGE MAN Gender Identity Not on file Sexual Orientation Not on file Plan of Treatment Health Maintenance Due Date Last Done Comments Hepatitis C Virus (HCV) Screening 1967 Hepatitis B Immunization (1 of 3 - 19+ 3-dose series) 1986 Pap Smear 1988 Cervical Cancer Screening (CCS) 1997 HPV/Cotest 1997 Cologuard 2012 Colonoscopy 2012 Colorectal Cancer Screening 2012 Immunochemical Fecal Occult Blood 2012 Pneumococcal Immunization (5 0+ years) (1 of 1 - PCV) 2017 Zoster Immunization (1 of 2) 2017 Influenza Immunization (#1) 2025 05/09/2017 SARS-COV-2 Immunization (1 - season) 2025 Respiratory Syncytial Virus (RSV) Immunization (Adult) (1 - 1-dose 75+ series) 2042 DTaP/Tdap/Td Immunization Discontinued 2016, 05/09/2017 TdaP Immunization Completed 05/22/2017, 05/09/2017 Human Papillomavirus (HPV) Immunization Aged Out No longer eligible based on patient's age to complete this topic Meningococcal Immunization (ACWY) Aged Out No longer eligible based on patient's age to complete this topic Rotavirus Immunization Aged Out No lo nger eligible based on patient's age to complete this topic Insurance [employer] on file [employer] on file
--- OUTSIDE RECORDS SUMMARY | 2025-07-28 09:03 | XMS_ITS | Clinical Summary ---
Author Organization [facility] Address [address] [place] [address] Care Team Providers Care Automotive Painter Helper Name Role Phone Unavailable Primary Care Provider [...] Comments Blood Pressure 136/74 07/21/2014 1:07 PM SEPTIC TANK SERVICE TECHNICIAN Pulse 96 07/21/2014 1:07 PM SEPTIC TANK SERVICE TECHNICIAN Temperature - - Respiratory Rate - - Oxygen Saturation - - Inhaled Oxygen Concentration - - Weight 109.5 kg (241 lb 8 oz) 07/21/2014 1:07 PM SEPTIC TANK SERVICE TECHNICIAN Height 167.6 cm (5' 6) 07/21/2014 1:07 PM SEPTIC TANK SERVICE TECHNICIAN Body Mass Index 38.98 07/21/2014 1:07 PM SEPTIC TANK SERVICE TECHNICIAN Plan of Treatment Health Maintenance Due Date [...] Screening with HPV 1997 Mammogram Screening 2007 Pneumococcal Vaccine: 50+ Ye ars (1 of 1 - PCV) 2017 Zoster Vaccines (1 of 2) 2017 COVID-19 Vaccine ( - 2024-2 6 season) 2025 Influenza Adult (#1) 2025 Hepatitis A Vaccines Aged Out No long er eligible based on patient's age to complete this topic Meningococcal B Vaccine Aged Out No l onger eligible based on patient's age to complete this topic Meningococcal Vaccine Aged Out No ewelina alissa eligible based on patient's age to complete this topic RSV Immunizations Under 20 Months Aged Out No longer eligible based on patient's age to complete this topic
--- OUTSIDE RECORDS SUMMARY | 2025-07-28 09:03 | XMS_ITS | Clinical Summary ---
Author Organization [facility] Address [address] [place] [address] Care Team Providers Care Gaming Cashier Name Role Phone Xavier Layton MD Primary Care Provider Source Comments [facility],non-owned Affiliates and Associated Physician Practices is amultiple site organization consisting of ambulatory clinics and hospital sitesin [place], [place], [place] and [place]. This disclosure is being madepursuant to the Care Everywhere program and may not contain all information available regarding this patient. Last updated 18.[facility] Allergies No known active allergies Medications * Be aware that medications may not be up to date on this document. Alwaysverify current medications with the patient. esomeprazole (NEXIUM) 20 MG capsule Take 20 [...] alcohol) HEAVIY IN 20'S, NOW COUPLE DRINKS/MONTH Comments No Sex and Gender Information Value Date Recorded Sex Assigned at Not on file Legal Sex Female 10:34 AM BUCKLE FRAME SHAPER Gender Identity Not on file Sexual Orientation Not on file Last Filed Vital Signs Vital Sign Reading Time Taken Comments Blood Pressure 122/70 09/04/2019 8:51 AM BUCKLE FRAME SHAPER Pulse 72 09/04/2019 8:51 AM BUCKLE FRAME SHAPER Temperature 36.4 C (97.6 F) 09/04/2019 8:51 AM BUCKLE FRAME SHAPER Respiratory Rate 18 09/04/2019 8:51 AM BUCKLE FRAME SHAPER Oxygen Saturation 98% 09/04/2019 8:51 AM BUCKLE FRAME SHAPER Inhaled Oxygen Concentration - - Weight 99.5 kg (219 lb 6.4 oz) 09/04/2019 8:51 A M BUCKLE FRAME SHAPER Height 167.6 cm (5' 6) 09/04/2019 8:51 AM BUCKLE FRAME SHAPER Body Mass Index 35.41 09/04/2019 8:51 AM BUCKLE FRAME SHAPER Plan of Treatment Health Maintenance Due Date Last Done Comments COLOGUARD (AGES 45-75) - COLON CA SCREENING 1967 COLON MONITORING 1967 COLONOSCOPY - COLON CA SCREENING 1967 CT COLONOGRAPHY - COLON CA SCREENING 1967 Colorectal Cancer Screening 1967 FIT - COLON CA SCREENING 1967 FLEX SIG - COLON CA SCREENING 1967 LIPID TESTING 1967 MAMMOGRAM 1967 HIV SCREENING 1982 DTAP/TDAP/TD VACCINES (1 - Tdap) 1986 HEPATITIS B VACCINE (1 of 3 - 19+ 3-dose series) 1986 PAP SMEAR 1988 PNEUMOCOCCAL VACCINE 50+ (1 of 1 - PCV) 2017 ZOSTER VACCINE (1 of 2) 2017 SCREENING FOR DIABETES 09/02/2022 0, 09/30/2018, 09/23/2018, Additional history exists DEPRESSION SCREENING 08/05/2024 COVID-19 VACCINE (1 - 2024- season) 2025 INFLUENZA VACCINE (#1) 2025 7, 08/21/2011, 04/19/2010 HEPATITIS C SCREENING Completed 08/19/2018 HIB VACCINE Aged Out No longer eligi ble based on patient's age to complete this topic HPV VACCINE Aged Out No longer eligi ble based on patient's age to complete this topic MENINGOCOCCAL (Group B) VACCINE SHARED DECISION-MAKING Aged Out No longer eligible based on patient's age to complete this topic MENINGOCOCCAL GROUPS A/C/Y/W VACCINE Aged Out No longer eligible based on patient's age to complete this topic Procedures Procedure Name Priority Date/Time Associated Diagnosis Comments COMPREHENSIVE METABOLIC PANEL Routine 09/02/2019 8:02 AM BUCKLE FRAME SHAPER Elevated liver enzymes Autoimmune hepatitis HEPATITIS C RNA QUANTITATIVE Routine 08/19/2018 2:40 PM BUCKLE FRAME SHAPER Elevated liver enzymes from Last 3 Months or Most Recently Relevant to Health Maintenance Results * (ABNORMAL) COMPREHENSIVE METABOLIC PANEL (09/02/2019 8:02 AM BUCKLE FRAME SHAPER) Glucose 110(H) 65 - 99 mg/dL [facility] [...] approximately 13% higher for people identified as -Brazilian. eGFR by MDRD 59(L) > OR = [...] 29 U/L [facility] Comment: Test Performed at: [facility] [address] [place] [address] MESFIN HUGGINS DO,MPH Blood BLOOD SPECIMEN / Unknown 09/02/2019 8:02 AM BUCKLE FRAME SHAPER 09/02/2019 8:03 AM BUCKLE FRAME SHAPER Bobby Lemus MD LAB - CHEMISTRY ORDERABLES Fin al Result Performing Organization Address [facility] Co de Phone Number [facility] [address] [place] [address] * HEPATITIS C RNA QUANTITATIVE (08/19/2018 2:40 PM BUCKLE FRAME SHAPER) Hepatitis C Virus RNA, Quantitative Real Time [...] of this assay have been determined by [employer]. The modifications have not been cleared or approved by the FDA. This assay has been validated pursuant to the CLIA regulations and is used for clinical purposes. For more information on this test, go to: http://education.[employer]/faq/KPX18l1 (This link is being provided for informational/ educational purposes only.) REPORT COMMENT: FASTING:NO Test Performed at: [facility] [id number] [place] [id number] MESFIN HUGGINS DO,MPH Blood BLOOD SPECIMEN / Unknown 08/19/2018 2:40 PM BUCKLE FRAME SHAPER 08/19/2018 2:42 PM BUCKLE FRAME SHAPER Brandon Henderson MD LAB - CHEMISTRY ORDERAB LES Final Result Performing Organization Address [facility]/ZIP Co de Phone Number [facility] [address] [place] [address] from Last 3 Months or Most Recently Relevant to Health Maintenance Insurance [employer] SELF PAY NO INSURANCE Member Subscriber Plan / Payer (Ef fective for All Dates) Name:Kavitha Melgar Member ID:Not on file Relation to Subscriber:Not on file Name:KAVITHA MELGAR Subscriber ID:Not on file (Home) Address: [address] [address] Payer ID:Not on file Group ID:Not on file Type:Self Pay Address: [place], [place] [employer] Care Teams Gaming Cashier Relationship Specialty Start Date End Date Xavier Layton MD [address] [place] [address] PCP - General Internal Medicine 08/18/18
--- OUTSIDE RECORDS SUMMARY | 2025-07-28 09:03 | XMS_ITS | Clinical Summary ---
Author Organization [facility] [facility] Address [address] [place] [address] Care Team Providers Care Apple Packing Header Name Role Phone Xavier Layton MD Primary Care Provider [phone] Allergies Active Allergy Reactions Criticality Noted Date Comments Adhesive Tape-Silicones 06/19/2011 Tetanus Toxoid Swelling 12/15/2009 Medications esomeprazole (NexIUM) 20 MG capsule Take 20 mg by mouth. Active lisinopriL (PRINIVIL) 20 MG tablet Take 20 mg by mouth. Active Immunizations Immunization Administration Dates Next Due Adacel (Tdap) Prefilled Syringe 05/09/2017 Fluzone Quadrivalent Multi-dose Vial (36+ months ) 05/09/2017 Fluzone Quadrivalent Single Dose Vial 06/25/2020 Influenza, Unspecified 08/21/2011,04/19/2010 Social History Tobacco Use Types Packs/Day Years Used Date Smoking Tobacco: Never Smokeless Tobacco: Never Tobacco Cessation:Counseling Given: Yes Comments No Sex and Gender Information Value Date Recorded Sex Assigned at Not on file Legal Sex Female 4:31 PM EDT Gender Identity Not on file Sexual Orientation Not on file Last Filed Vital Signs Vital Sign Reading Time Taken Comments Blood Pressure 132/84 06/25/2020 2:52 PM TOOLMAKER GRADE THREE Pulse 69 06/25/2020 2:52 PM TOOLMAKER GRADE THREE Temperature 36.4 C (97.6 F) 06/25/2020 2:52 PM TOOLMAKER GRADE THREE Respiratory Rate 14 06/25/2020 2:52 PM TOOLMAKER GRADE THREE Oxygen Saturation 98% 06/25/2020 2:52 PM TOOLMAKER GRADE THREE Inhaled Oxygen Concentration - - Weight 97.5 kg (215 lb) 06/25/2020 2:52 PM TOOLMAKER GRADE THREE Height 167.6 cm (5' 6) 06/25/2020 2:52 PM TOOLMAKER GRADE THREE Body Mass Index 34.7 06/25/2020 2:52 PM TOOLMAKER GRADE THREE Plan of Treatment Not on file Medical Devices Not on file Care Teams Apple Packing Header Relationship Specialty Start Date End Date Xavier Layton MD PCP - General Internal Medicine 06/25/20
--- NOTE | 2025-07-28 09:49 | EST_ITS ---
Patient Info Name: Kavitha Roper Age: 60 years : 1965 Gender: Female Ht: 66 in Wt: 175 lbs BSA: 1.94 m2 HR: 65 bpm BP: 115 / 66 mmHg Exam Date: 07/28/2025 9:49 AM Patient Status: O Admit Date: 07/28/2025 Exam Type: CA stress test treadmill w NM A nuclear stress test was performed. Staff Referring Physician: Dilcia Way Attending Provider: Dilcia Way Exercise Technologist: Mindy Beltran Exercise Physician: Maxi Sapp DO Summary 1. 1. Negative Alejo exercise stress test for ischemic ST changes by ECG criteria. 2. 2. Good functional capacity, achieving 9.8 METs of workload. 3. 3. Appropriate HR response to exercise. 4. 4. Appropriate HR recovery at 1 minute post exercise. 5. 5. Nuclear scan to follow and will be reported separately. Please correlate with it. 6. 6. Patient informed of the above results. Protocol: Alejo Stress ECG Details Stage: REST Duration (min): 0 min : 44 sec Speed (mph): 0.0 Grade (%): 0 HR (bpm): 63 SBP (mmHg): 115 DBP (mmHg): 66 METS: --- Stage: REST Duration (min): 3 min : 36 sec Speed (mph): 0.0 Grade (%): 0 HR (bpm): 74 SBP (mmHg): 115 DBP (mmHg): 66 METS: --- Stage: STAGE 1 Duration (min): 1 min : 0 sec Speed (mph): 1.7 Grade (%): 10 HR (bpm): 89 SBP (mmHg): 115 DBP (mmHg): 66 METS: --- Stage: STAGE 1 Duration (min): 2 min : 0 sec Speed (mph): 1.7 Grade (%): 10 HR (bpm): 97 SBP (mmHg): 115 DBP (mmHg): 66 METS: --- Stage: STAGE 1 Duration (min): 3 min : 0 sec Speed (mph): 1.7 Grade (%): 10 HR (bpm): 101 SBP (mmHg): 88 DBP (mmHg): 46 METS: --- Stage: STAGE 2 Duration (min): 1 min : 0 sec Speed (mph): 2.5 Grade (%): 12 HR (bpm): 114 SBP (mmHg): 88 DBP (mmHg): 46 METS: --- Stage: STAGE 2 Duration (min): 2 min : 0 sec Speed (mph): 2.5 Grade (%): 12 HR (bpm): 122 SBP (mmHg): 102 DBP (mmHg): 46 METS: --- Stage: STAGE 2 Duration (min): 3 min : 0 sec Speed (mph): 2.5 Grade (%): 12 HR (bpm): 129 SBP (mmHg): 102 DBP (mmHg): 46 METS: --- Stage: STAGE 3 Duration (min): 1 min : 0 sec Speed (mph): 3.4 Grade (%): 14 HR (bpm): 141 SBP (mmHg): 130 DBP (mmHg): 83 METS: --- Stage: STAGE 3 Duration (min): 1 min : 30 sec Speed (mph): 3.4 Grade (%): 14 HR (bpm): 148 SBP (mmHg): 130 DBP (mmHg): 83 METS: --- Stage: RECOVERY Duration (min): 0 min : 29 sec Speed (mph): 0.0 Grade (%): 0 HR (bpm): 141 SBP (mmHg): 130 DBP (mmHg): 83 METS: --- Stage: RECOVERY Duration (min): 1 min : 29 sec Speed (mph): 0.0 Grade (%): 0 HR (bpm): 111 SBP (mmHg): 130 DBP (mmHg): 83 METS: --- Stage: RECOVERY Duration (min): 2 min : 29 sec Speed (mph): 0.0 Grade (%): 0 HR (bpm): 100 SBP (mmHg): 130 DBP (mmHg): 83 METS: --- Stage: RECOVERY Duration (min): 3 min : 29 sec Speed (mph): 0.0 Grade (%): 0 HR (bpm): 94 SBP (mmHg): 154 DBP (mmHg): 76 METS: --- Stage: RECOVERY Duration (min): 4 min : 29 sec Speed (mph): 0.0 Grade (%): 0 HR (bpm): 89 SBP (mmHg): 154 DBP (mmHg): 76 METS: --- Stage: RECOVERY Duration (min): 5 min : 8 sec Speed (mph): 0.0 Grade (%): 0 HR (bpm): 85 SBP (mmHg): 139 DBP (mmHg): 76 METS: --- Rest HR: 74 bpm Peak HR: 161 bpm Rest Sys BP: 115 mmHg Peak Sys BP: 154 mmHg Max Pred HR: 162 bpm % Max Pred HR: 99 % Target HR: 138 bpm Max RPP: 24,794 bpm*mmHg Perez Score: -7 Termination Reason: Reached target heart rate or workload Cardiac Symptoms: Shortness of breath Max ST Seg Deviation: -2.80 mm Total Time: 7 min : 30 sec Rest Cadena BP: 66 mmHg Peak Cadena BP: 76 mmHg Angina Score: None Total METS: 9.8 Resting ECG Sinus rhythm. Stress ECG No ST changes. Arrhythmias None. Report Signatures
== END 2025-07-28 09:01 | disposition home or self-care (01) ==
PROVIDERS: PCP Family Medicine; Visit Provider Nurse Practitioner Family
DX: R94.31 Abnormal electrocardiogram [ECG] [EKG] (principal); R55 Syncope and collapse
CPT/HCPCS: 78452; 93017; A9502